=== PATIENT | male | born 1945 | race Caucasian/White ===

== ENCOUNTER 2023-10-29 19:02 | Inpatient (IN) | payer MEDICARE, SELFPAY ==
[2023-10-29] VITALS (12 sets, daily range): BP systolic 135–160; BP diastolic 67–83; BMI 21.6
--- NOTE | 2023-10-29 19:05 | PTCARENOTE ---
Pt arrived via EMS from other hospital facility. Pt is scheduled to go to cath lab tech for pseudoaneurysm procedure ethel.
--- NOTE | 2023-10-29 19:16 | W.SUR.PREOP ---
Pre-Operative Surgical Note
-
I have examined this patient prior to the performance of the scheduled procedure.
The patient's condition is unchanged from the time of the current History and
Physical and the patient is able to undergo the scheduled procedure.
--- NOTE | 2023-10-29 19:16 | W.PN.VS ---
Today's Communication / Plan
-
OR
Assessment/Plan
-
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
plan for endo possible open repair
discussed with patient and family
emergent to OR
Subjective Data
-
Date of Service: October 29, 2023
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
history of lymph node dissection and radiation
reports to be otherwise healthy
Physical Exam
-
pulsatile mass left neck
no erythema
slight tenderness
2+ femoral pulses
--- NOTE | 2023-10-29 19:37 | PTCARENOTE ---
Report given to vascular laborer [employer] prior to pt's arrival to hospital. Rec'd pt at approx 1900 from ambulance crew. Pt ambulated to restroom to void, settled in bed, handoff with receiving nightshift RN in room. Pt placed on monitor and transported down
to vascular lab.
--- NOTE | 2023-10-29 19:56 | W.IMMPOSTOP ---
Surgical Immed Post Op Note
-
Primary Surgeon: teodora
Assisting Surgeon: none
Pre-op Diagnosis: Left Carotid pseudo aneurysm
Post-op Diagnosis: same
Procedure Performed: L CCA and ICA stent graft
Anesthesia Type: Sedation
Specimen / Cultures: none
Estimated Blood Loss: 10
Complications: none
Operative Findings: no flow in pseudo
[2023-10-29] MEDS: NSS 1000 IV (20:15)
--- NOTE | 2023-10-29 20:30 | PTCARENOTE ---
Received pt post operatively from wheelabrator operator. Pt appears drowsy but arousable to verbal and tactile stimuli. Pt is A&Ox2, confused to time. Pt is also forgetful at times. Pt is able to move all 4 extremities and can make needs known. Pt is NSR w/ BBB
and occ. PVCs on tele monitor. Neurovascular checks performed per order. Pedal pulses present via doppler bilaterally and radial pulses palpated bilaterally. Pt on 2L of O2 satting at 97% pulse ox. On auscultation pt lungs sound diminished at the
bases bilaterally otherwise clear. Pts abdomen is round w/ active bowel sounds. Pt has frequency w/ urination, condom cath applied due to bedrest and rt leg mobility restriction. Pt's right groin cath puncture site dressing C/D/I. Pt has a scab on
right knee and bandage on rt londono related to a fall at home. Pt also has adhesive surgical tape strips on rt chest related to an outpatient dermatology procedure. VSS.
[2023-10-30] VITALS (20 sets, daily range): BP systolic 99–161; BP diastolic 61–80; PULSE 94; BMI 21.4
--- NOTE | 2023-10-30 00:30 | PTCARENOTE ---
Neurovascular checks remain unchanged. Cath site dressing C/D/I. Pt resting comfortably at this time. VSS.
[2023-10-30] MEDS: ROXICODONE 5 MG PO (04:04)
[2023-10-30 04:26] LABS: Hematocrit 43.2 % (39.0-52.0); Hemoglobin 14.6 g/dL (13.0-18.0); Mean Corp Hgb Conc. 33.8 g/dL (33.0-37.0); Mean Corpuscular Hgb 32.2 pg (27.0-31.0); Mean Corpuscular Volume 95.2 fL (80.0-94.0); Mean Platelet Volume 10.3 fL (7.4-10.4); Platelet Count 184 10^3/uL (130-400); Red Blood Cell Count 4.54 10^6/uL (4.70-6.10); Red Cell Dist. Width 14.6 % (11.5-14.5)
[2023-10-30 04:40] LABS: INR 1.09; PT 13.9 Sec (11.4-14.6)
[2023-10-30 04:41] LABS: APTT 31.2 Sec (23.4-35.0)
[2023-10-30 04:47] LABS: Blood Urea Nitrogen 27 mg/dl (9-20); Calcium 9.3 mg/dl (8.4-10.2); Carbon Dioxide 25 mmol/L (22-30); Chloride 107 mmol/L (98-107); Estimated Creatinine Clearance 66 ml/min; Glucose 77 mg/dl (70-99); Magnesium 2.1 mg/dl (1.6-2.3); Phosphorus 3.1 mg/dl (2.5-4.5); Potassium 4.2 mmol/L (3.5-5.1); Sodium 140 mmol/L (135-145); eGFR > 60.00
--- NOTE | 2023-10-30 05:30 | PTCARENOTE ---
Pt c/o pain at surgical/procedural site. Pt states pain is 6 out of 10. PRN valerie administered by this RN.
--- NOTE | 2023-10-30 07:15 | W.PN.ANS.POP ---
Anesthesia Post Operative
- Anesthesia Post Op Note
Vital Signs Stable-See Nursing Note: Yes
Airway Patent: Yes
Adequate Pain Control: Yes
Change in Mental Status: No
Current Postoperative Nausea & Vomiting: No
Anesthesia Complications: No
General Anesthetic Recall: No
Unplanned Admission: No
Post Op Hydration Adequate: Yes
--- NOTE | 2023-10-30 07:33 | CON.INTV ---
Consultation
Consultation Request
Date/Time Consultation Requested: 10-30-23
Date/Time Consultation Performed: 10-30-23
Requesting Provider: Dr Romero
Performing Provider: Dr Pena
Reason for Consultation: s/p L CCA and ICA stent graft
Medical History
-
Chief Complaint: L neck pain
Past Medical History
Past Medical History: Other (see A&P for PMH/PSH)
Social History
Tobacco: Non-smoker
Alcohol: Occasional
Drug: None
Personal:
Living: With Family
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
Family History
Family History: Reviewed & Not Pertinent
Allergies / Home Medications
Allergies
Allergy/AdvReac Type Severity Reaction Status Date / Time
hayfever Allergy Itching Uncoded 10/29/23 19:18
Review of Systems
-
History Source: Patient
All other systems: Negative unless noted
Musculoskeletal: Other (L neck incisional pain)
Vitals / Labs / Diagnostic Testing
Vital Signs
Temp Pulse Resp BP Pulse Ox
98.1 F 84 26 135/67 99
10/30/23 07:28 10/30/23 06:30 10/30/23 06:30 10/30/23 06:00 10/30/23 06:30
Lab Data
10/30/23 04:16
10/30/23 04:16
Laboratory Results
10/30/23
04:16
PT 13.9
INR 1.09
APTT 31.2
Diagnostic Testing:
Physical Exam
-
HEENT: Normocephalic, Moist Mucous Membranes and Thrush (n)
Cardiovascular: Regular Rhythm, Murmur (n), Peripheral Edema (n) and Calf Tenderness (n)
Respiratory: Clear and Non-Labored Respirations
GI: Soft, Non Distended and Non Tender
Neurology: Awake, AO x 3 and No Motor Deficits
Skin: Warm
General: Respiratory Distress (n)
Assessment
-
Assessment:
Mr Bob Aguilar is a delightful 78/M transferred for L CCA and ICA stent graft in setting of L carotid bifurcation pseudoaneurysm. Recently received multiple skin biopsies including L neck area as outpatient 1.5 wks ago, seen back at Derm office
this week where new L neck lump was observed, prompting further evaluation which disclosed L carotid bifurcation pseudoaneurysm. Seen at outside ER, transferred to for
Impression:
S/p L CCA and ICA stent graft in setting of L carotid bifurcation pseudoaneurysm
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
Bladder cancer s/p surgery adn BCG, on follow up
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
L carotid pseudoaneurysm
HLD
Hypothyroidism
LLNS
Hearing loss on hearing aids
Plan:
O2 protocol
POx on 2L: 98%
Not on home O2 or BDs
LLNS
Keep asp precs
CXR early -: portable, no infiltrates
IS
Stable postop L CCA and ICA stent graft in setting of L carotid bifurcation pseudoaneurysm
Continue ASA, now dose at 81 mg qd
Started clopidogrel
Resume L-thyroxine, atorvastatin, amlodipine
Regular diet
Pain mgmt, prn morphine IV
PT/OT
OOB as tolerated
DVT proph: sc hep
Stable for transfer to telemetry once OK with Neuro
No critical care time charged today
D/w Mr Aguilar and SPINNER IRONJI Whitt
TT to Dr Gerardo Aguilar (patient's son)
[2023-10-30] MEDS: PLAVIX 75 MG PO (07:39)
[2023-10-30] MEDS: LOW STRENGTH ASPIRIN 81 MG PO (07:39)
[2023-10-30] MEDS: NSS 1000 IV ×2 (08:04→23:00)
--- NOTE | 2023-10-30 08:38 | PTCARENOTE ---
Rec'd pt at 0700. Pt AAOx2-3, forgetful to present time events with repetitive questions. CHEESH-NA, hearing aids inserted. Monitor SR with occas PAC/PVC. Lungs dim/CTA, pox 97% RA. +BS, abd soft/nt. Breakfast ordered. Condom cath in place draining yellow
urine. Right groin site C/D/I. +DP/PT pulses. TURK with equal strength.
--- NOTE | 2023-10-30 09:59 | W.PN.VS ---
Today's Communication / Plan
-
transfer to tele
Assessment/Plan
-
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
doing well post op
ok to downgrade
likely home trudi
plavix
Subjective Data
-
Date of Service: October 30, 2023
looks good this am
no complaints
Objective Data
-
Vital Signs
Temp Pulse Resp BP Pulse Ox
98.1 F 100 18 140/73 96
10/30/23 07:28 10/30/23 09:45 10/30/23 09:45 10/30/23 07:00 10/30/23 09:30
Intake and Output
10/29/23 10/30/23 10/31/23
06:59 06:59 06:59
Intake Total 800 / 880 160 / 160
Output Total 1375 / 1375
Balance -575 / -495 160 / 160
Intake:
IV fluids (Total) 800 / 880 160 / 160
Nss 1,000 ml @ 80 mls/hr IV . 800 / 880 160 / 160
[id number] JULISSA Rx#:[id number]
Output:
Urine, Voided 1375 / 1375
Other:
Number of approximated MODERATE 1
amounts of urine
Lab Results
10/30/23 04:16
10/30/23 04:16
Calcium 9.3 mg/dl (8.4-10.2) 10/30/23 04:16
Phosphorus 3.1 mg/dl (2.5-4.5) 10/30/23 04:16
Magnesium 2.1 mg/dl (1.6-2.3) 10/30/23 04:16
Physical Exam
-
rrr
ctab
groin intact
+ pulse in right foot
neck now non pulsatile
[2023-10-30] MEDS: NORVASC PO (11:00)
--- NOTE | 2023-10-30 11:30 | PTCARENOTE ---
~1015, pt in bathroom, stated he felt nauseous. Pt stood and vomited into sink, pt then became dizzy, pale/diaphoretic. RN remained at pt's side and called for additional help. Recliner chair wheeled into bathroom by another staff member and pt
assisted down into chair. BP taken- 99/62. Dr. Romero notified of events, still ok for transfer to tele per MD. Pt's and son in to visit, updated. Pt back to baseline, color improved.
--- NOTE | 2023-10-30 13:08 | PTCARENOTE ---
Pt transferred to 2102 via bed, accompanying pt.
--- NOTE | 2023-10-30 13:39 | PTCARENOTE ---
pt received to room 2103 from ICU at 1315. pt arrived via bed, present. pt oriented to room, bed controls and plan of care with verbalized understanding. assessment as documented. telemetry placed and reading SR in 80's. pt denies
c/o-tolerating issac nash and crackers, denies nausea. bed alarm in place due to forgetfulness. will observe.
[2023-10-30] MEDS: HEPARIN 5000 UNITS SC ×2 (17:24→23:05)
[2023-10-30] MEDS: LIPITOR 80 MG PO (17:25)
[2023-10-31 02:56] VITALS: BP 116/79
[2023-10-31] MEDS: SYNTHROID 50 MCG PO (05:47)
[2023-10-31 07:27] VITALS: BP 146/85
[2023-10-31] MEDS: NORVASC 2.5 MG PO (08:24)
[2023-10-31] MEDS: LOW STRENGTH ASPIRIN 81 MG PO (08:24)
[2023-10-31] MEDS: PLAVIX 75 MG PO (08:24)
[2023-10-31] MEDS: HEPARIN 5000 UNITS SC (08:25)
--- NOTE | 2023-10-31 08:39 | W.PN.VS ---
Addendum entered and electronically signed by Jordan Mckee III, MD 10/31/23 14:35:
This patient was seen and examined with Zuleyka Hanson PA-C. I agree with the history and physical exam as well as the assessment and plan. I have the following additions:
Comfortable this morning
No complaints
Sitting upright in chair
Neck is soft
Right groin access site soft with no hematoma
Grossly nonfocal neuroexam
is at bedside
Would like to obtain carotid duplex prior to discharge to confirm thrombosis of pseudoaneurysm. No filling was identified on completion images yesterday.
Continue antiplatelet therapy
Will follow-up after imaging complete
Signed:
Jordan Mckee III, MD
[facility]
[phone] (cubs)
Original Note:
Today's Communication / Plan
-
- Carotid duplex to eval post carotid stent
- Continue neuro checks
- Continue ASA/plavix/statin
- PT/OT, OOB/ambulate
- Plan for discharge later today pending carotid duplex
Assessment/Plan
-
78 year old male with left carotid pseudoaneurysm s/p L ICA/CCA angioplasty/stent POD2
- Carotid duplex to eval post carotid stent
- Continue neuro checks
- Continue ASA/plavix/statin
- PT/OT, OOB/ambulate
- Plan for discharge later today pending carotid duplex
Subjective Data
-
Date of Service: October 31, 2023
No acute events overnight. No headaches, vision changes, speech changes, unilateral weakness/numbness.
Objective Data
-
Vital Signs
Temp Pulse Resp BP Pulse Ox
98.7 F 86 20 146/85 100
10/31/23 07:27 10/31/23 08:24 10/31/23 07:27 10/31/23 08:24 10/31/23 08:00
Intake and Output
10/30/23 10/31/23 11/01/23
06:59 06:59 06:59
Intake Total 800 / 880 1271 / 1271
Output Total 1375 / 1375 470 / 470
Balance -575 / -495 801 / 801
Intake:
Oral fluids 600 / 600
IV fluids (Total) 800 / 880 671 / 671
Nss 1,000 ml @ 80 mls/hr IV . 800 / 880 240 / 240
[id number] JULISSA Rx#:[id number]
Output:
Urine, Voided 1375 / 1375 470 / 470
Other:
Number of approximated MODERATE 1
amounts of urine
How many times incontinent 1
SATURATED amount urine
Lab Results
10/30/23 04:16
10/30/23 04:16
Calcium 9.3 mg/dl (8.4-10.2) 10/30/23 04:16
Phosphorus 3.1 mg/dl (2.5-4.5) 10/30/23 04:16
Magnesium 2.1 mg/dl (1.6-2.3) 10/30/23 04:16
Physical Exam
-
Awake, alert, NAD
Regular rate and rhythm
Nonlabored respirations
Left neck with mild edema, no tenderness or pulsatility.
No focal deficits. Strength equal in bilateral upper and lower extremities. Smile symmetrical, tongue midline.
R groin access site c/d/i. R groin without bleeding or hematoma
+R DP pulse
[2023-10-31 10:51] VITALS: BP 155/89; PULSE 92
[2023-10-31 11:22] VITALS: BP 128/90
--- NOTE | 2023-10-31 12:49 | PN.CDI ---
Addendum entered and electronically signed by Zuleyka Hanson PA-C 10/31/23 14:04:
pseudoaneurysm is suspected to be complication of procedure
Original Note:
CDI
- -
CDI:
Physician Documentation Request
Admit Date: 10/29/23 19:02
Dear Zuleyka Hanson,
Patient was transferred for L CCA and ICD for L carotid bifurcation pseudoaneurysm. It is noted that patient has received multiple skin biopsies including left neck area as outpatient 1.5 weeks ago, seen back at crm technical lead office this week with
new left neck lump, prompting further evaluation with disclosed the pseudoaneurysm.
Please clarify the following:
pseudoaneurysm is a complication of the procedure
pseudoaneurysm is unexpected but is NOT a complication of the procedure
pseudoaneurysm is an expected occurrence and is not a complication of procedure
pseudoaneurysm is inherent to/unavoidable during the surgery and is not a procedure
Other
Use of terms such as suspected, likely, concern for, or probable (associated with a specific diagnosis that is being evaluated, monitored, or treated as if it exists) are acceptable and can be coded in the inpatient setting, when documented at the
time of discharge.
Thank you,
Yaz Pickett RN, BSN
CDI Specialist
tiger text
Please use your independent medical judgment in providing your response.
--- NOTE | 2023-10-31 14:35 | W.PN.UPDATE ---
Update Note
Progress Note Update
Carotid duplex images reviewed. There is color flow in a complex collection surrounding the left common carotid artery. Source of color flow cannot be determined on duplex. Unclear based on these results if the pseudoaneurysm is completely
excluded. Will proceed with CT angiogram of the head and neck now. Patient is clinically very stable.
[2023-10-31 15:27] VITALS: BP 140/86
--- NOTE | 2023-10-31 15:48 | CM ---
Addendum [facility] 10/31/23 16:19:
[facility]- out of service area
Referral sent to [facility]
VN order on chart
Discharge Disposition- home with Irma and new WW
fax- [phone]
Addendum entered by [facility] 10/31/23 15:51:
Requesting VN call [phone] to schedule service
Original Note:
CM met with pt and spouse bedside
They resides in a 2S with 2 ANA- 1st floor setup
Pt is independent with his ADLs- no DMEs very active
Food secure
PCP- Leonard Reilly
Rx- [facility]
PT/OT recommended VN
[facility] request
If [facility] does not servcie area, referral to be made to [facility]
Therapy has issued a WW which is bedside
Pt now inpatient status- IMM verbally reviewed
Copy provided
Discharge Disposition- home with [facility] and new WW
--- NOTE | 2023-10-31 17:09 | W.DS.TRANS ---
DC Summary - Receipt And Report Clerk
-
Discharge Instructions:
Discharge Diagnosis/Procedures Left carotid pseudoaneurysm, Left carotid
angioplasty and stent
Diet As tolerated
Activity No strenuous activity
Driving Restrictions No driving for 24 hours
Bathing Restrictions OK to Shower
Other Services PT,VN
Instructions: Carotid Artery Stenting (DC)
Carotid Artery Stenting
Stand-Alone Forms: DC Instr - Vascular OR
Changes to Home Medications: Yes
Discharge Medications:
DC Medications w/original date entered in [employer]
amlodipine 2.5 mg tablet (Norvasc) 2.5 mg PO DAILY Blood Pressure 10/30/23
atorvastatin 80 mg tablet (Lipitor) 80 mg PO HS High Cholesterol 10/30/23
levothyroxine 50 mcg tablet (Synthroid) 50 mcg PO DAILY Thyroid 10/30/23
aspirin 81 mg chewable tablet (Children's Aspirin) 81 mg PO DAILY #30 tabs 10/31/23
clopidogrel 75 mg tablet 75 mg PO DAILY #30 tabs 10/31/23
Home Medication Changes
plavix 75mg added, asa changed from 325mg to 81mg
Pending Results: No
--- NOTE | 2023-10-31 17:11 | W.DCSUMMARY ---
Discharge Summary
Discharge Data
Date of Admission: 10/29/23
Date of Discharge: 10/31/23
-
Pending Results: No
Hospital Course
10/29/23: Presented with left neck pulsatile mass, found to have left carotid pseudoaneurysm following outpatient biopsy of neck mass. Underwent left carotid angiogram with left ICA/CCA angioplasty and stent via right femoral access. Tolerated
procedure well. Started on plavix, continued ASA.
10/30/23: Doing well postoperatively, remains neurologically intact. Neck without pulsatile mass. Transferred to telemetry.
10/31/23: Repeat carotid duplex and CTA performed showing thrombosis of pseudoaneurysm, no active bleeding. Discharged to home with VN and home PT. Plan to follow up in vascular surgery clinic with Dr. Mckee on 11/24/23 at 9:45am.
Discharge Plan
-
Patient Disposition: Home (Routine Discharge)
Discharge Diagnosis/Procedures: Left carotid pseudoaneurysm, Left carotid angioplasty and stent
Condition: Good
Diet: As tolerated
Activity: No strenuous activity
Driving Restrictions: No driving for 24 hours
Bathing Restrictions: OK to Shower
Other Services: VN and PT
Instructions: Carotid Artery Stenting (DC), Carotid Artery Stenting
Stand Alone Forms: DC Instr - Vascular OR
Referrals:
Jordan Mckee III, MD [Active] - in two to four weeks (Appt scheduled for 11/24/23 at 9:45am)
Leonard Reilly MD [Family Provider] -
Prescriptions:
New
clopidogrel 75 mg Tablet
75 mg PO DAILY Qty: 30 0RF
aspirin [Children's Aspirin] 81 mg Tablet,Chewable
81 mg PO DAILY Qty: 30 0RF
Continued
levothyroxine [Synthroid] 50 mcg Tablet
50 mcg PO DAILY
atorvastatin [Lipitor] 80 mg Tablet
80 mg PO HS
amlodipine [Norvasc] 2.5 mg Tablet
2.5 mg PO DAILY
Discontinued
aspirin 325 mg Tablet
325 mg PO DAILY
Discharge Orders:
Discharge Patient (As Directed); Ordered 10/31/23
Ordered By: Zuleyka Hanson
Discharge Date and Time
Print Language: ROMANIAN
[2023-10-31] MEDS: HEPARIN SC (17:37)
[2023-10-31] MEDS: LIPITOR 80 MG PO (17:38)
== END 2023-10-31 19:14 | disposition home health service (06) | DRG 271 ==
LOC: 2 SOUTH 19:02
PROVIDERS: ADMITTING PHYSICIAN Surgery; FAMILY PHYSICIAN Internal Medicine; OTHER PHYSICIAN Internal Medicine Pulmonary Disease
PROC: B3171ZZ Fluoroscopy of Left Internal Carotid Artery using Low Osmolar Contrast (ICD-10-PCS; 2023-10-30)
PROC: 03V Upper Arteries, Restriction (ICD-10-PCS; 2023-10-30)
PROC: B31B1ZZ Fluoroscopy of Left External Carotid Artery using Low Osmolar Contrast (ICD-10-PCS; 2023-10-30)
PROC: B3141ZZ Fluoroscopy of Left Common Carotid Artery using Low Osmolar Contrast (ICD-10-PCS; 2023-10-30)
DX: T81.718A Complication of other artery following a procedure, not elsewhere classified, initial encounter (principal); I74.8 Embolism and thrombosis of other arteries; T82.868A Thrombosis due to vascular prosthetic devices, implants and grafts, initial encounter; I72.0 Aneurysm of carotid artery; M54.2 Cervicalgia; J30.1 Allergic rhinitis due to pollen; E78.5 Hyperlipidemia, unspecified; E03.9 Hypothyroidism, unspecified; H91.90 Unspecified hearing loss, unspecified ear; Y84.8 Other medical procedures as the cause of abnormal reaction of the patient, or of later complication, without mention of misadventure at the time of the procedure; Y92.9 Unspecified place or not applicable; Z92.3 Personal history of irradiation; Z90.81 Acquired absence of spleen; Z85.51 Personal history of malignant neoplasm of bladder; Z86.73 Personal history of transient ischemic attack (TIA), and cerebral infarction without residual deficits
CPT/HCPCS: 37215; 70496; 70498; 71045; 76937; 80048; 83735; 84100; 85027; 85610; 85730; 93005; 93880; 97116; 97163; 97166; 97530; 97535; C1760; C1769; C1874; C1894; Q9967

== ENCOUNTER → 2024-02-15 13:54 | Outpatient (REF) | payer MEDICARE, SELFPAY | LOC: RAD 13:54 | PROVIDERS: ATTENDING PHYSICIAN Surgery Vascular Surgery; FAMILY PHYSICIAN Internal Medicine | DX: I72.0 Aneurysm of carotid artery (principal) | CPT/HCPCS: 93880 ==

== ENCOUNTER 2024-08-16 23:55 | Inpatient (IN) | payer MEDICARE, SELFPAY ==
[2024-08-16 16:53] VITALS: BP 143/79
[2024-08-16 17:21] LABS: % Basophils 0.4 % (0-2); % Eosinophils 0.9 % (0-6); % Immature Granulocytes 0.2 % (0-0.5); % Lymphocytes 32.8 % (20.5-51.1); % Monocytes 12.7 % (1.7-9.3); Absolute Eosinophils 0.1 10^3/uL (0-0.7); Absolute Lymphocytes 3.1 10^3/uL (1.2-3.4); Absolute Monocytes 1.2 10^3/uL (0.1-0.6); Hematocrit 43.5 % (39.0-52.0); Hemoglobin 14.5 g/dL (13.0-18.0); Mean Corp Hgb Conc. 33.3 g/dL (33.0-37.0); Mean Corpuscular Hgb 32.5 pg (27.0-31.0); Mean Corpuscular Volume 97.5 fL (80.0-94.0); Mean Platelet Volume 10.6 fL (7.4-10.4); Nucleated Red Blood Cells % 0 % (-); Platelet Count 213 10^3/uL (130-400); Red Blood Cell Count 4.46 10^6/uL (4.70-6.10); White Blood Cell Count 9.3 10^3/uL (4.8-10.8)
[2024-08-16 19:20] VITALS: BMI 23.4
[2024-08-16 19:24] VITALS: BP 141/65
--- NOTE | 2024-08-16 19:40 | ED.GENMED ---
History of Present Illness
<Kiana Don PA-C - Last Filed: 08/17/24 03:55>
General
Chief Complaint: Abnormal Lab Value
Source: patient
Exam Limitations: none
Time Seen by Provider: 08/16/24 19:04
Nursing documentation reviewed up to this point in time: agreed with
History of Present Illness
History of Present Illness:
Patient is a 79-year-old male with history hypertension, hyperlipidemia, past history of bladder CA, Hodgkin's lymphoma presenting to the emergency department for evaluation of lump on left side and neck. Patient states he had a stent placed in his
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 There was a postoperative hematoma that has been present since surgery although has not been decreasing in size. This has been followed closely with vascular surgeon, Dr. Mckee. Patient
states that overnight hematoma became red and firm with possible mild increase in size. Patient states that it is not very painful. He denies any fever, chills, difficulty breathing, difficulty swallowing, weakness.
After discussion with vascular surgeon�he was sent for CT scan and then sent to the emergency department from radiology department given concern of possible infected hematoma.
Review of Systems
<Kiana Don PA-C - Last Filed: 08/17/24 03:55>
Review of Systems
Allergies reviewed?: Yes
All Other Systems: ROS reviewed and negative except as documented in HPI and ROS
Phy Exam
<Kiana Don PA-C - Last Filed: 08/17/24 03:55>
Physical Exam
Physical Exam:
Vitals: Hypertensive, otherwise vital signs stable. Afebrile
General: Patient is well appearing, no acute distress. Nontoxic-appearing
Skin: Warm and dry, no rashes or lesions
Head: Normocephalic, atraumatic
Eyes: Sclera nonicteric. EOMs intact. No nystagmus.
Throat: Uvula midline. Protecting airway. No stridor
Neck: Approximately 3cm x 3cm firm erythematous nodule on left lateral neck with minimal tenderness to palpation.. No overlying warmth. Trachea midline. Normal range of motion in neck. Palpable carotid pulse bilaterally
Cardiac: Regular rate and rhythm, no murmurs.
Pulm: Normal respiratory effort, no wheezes, rales, rhonchi heard on exam.
Abdomen: No abdominal tenderness.
Extremities: No evidence of cyanosis or edema. Palpable radial pulses bilaterally
Neuro: AAOx3. CN II-XII intact. No focal neurologic deficits.
Psychiatric: Normal affect.
Course
<Kiana Don PA-C - Last Filed: 08/17/24 03:55>
Orders/Labs/Results
Orders:
Orders
08/16/24 17:13
Complete Blood Count/With Diff Urgent
08/16/24 19:45
Electrocardiogram (*1) Urgent
Reason for Study: PreOp
EKG- Treatment ONCE
08/16/24 20:18
Basic Metabolic Panel Urgent
Lactic Acid Q4H
Comment: CANCEL 2nd LACTIC ACID IF 1st LACTIC ACID IS LESS THAN 2
PTT Urgent
Prothrombin Time Urgent
Blood Culture Q30M
XIOMARA Source: Blood/Venous
Specimen Description:
Blood Culture Q30M
XIOMARA Source: Blood/Venous
Specimen Description:
08/16/24 21:42
Vancomycin [Vancocin] 2,000 mg 0.9% Sodium Chloride 500 ml [Nss] 500 ml IV NOW
08/16/24 22:44
Admit/Transfer Patient As Directed
Co-Sign Provider:
Level of Care: Inpatient admission
Assign to:: Medical/Surgical
Physician / Group: [facility]
Diagnosis: Hematoma +/- Infection
Reason for Hospitalization: Hematoma +/- Infection
Expected length of stay greater than two midnights?: Yes
ELOS- Estimated Length of Stay in days: 3
I certify the patient meets the requirements for IP care: Yes
PRN Pain Medication Management As Directed
May give lesser potent ordered pain med per pt: Yes
preference::
Protocol:: Medication orders for pain may be administered in a
manner that supports deferring to patient preference
when the pt is:
- Requesting an ordered lesser potent pain medication.
Least to most potent pain medications are defined
as: acetaminophen < NSAID < tramadol < opioids
(morphine, oxycodone, hydromorphone).
- Requesting a lesser dose of the same medication IF
ORDERED.
- Requesting a less intrusive route of administration
if both routes are prescribed by the provider (PO <
IV).
08/16/24 22:45
Code Status As Directed
Resuscitation Status: Full Code
08/17/24 01:45
0.9% Sodium Chloride 1000 ml [Nss] 1,000 ml IV 80 mls/hr
Acetaminophen [Tylenol] 650 mg PO Q4HPRN PRN
HYDROmorphone [Dilaudid] 0.5 mg IV Q4HPRN PRN
08/17/24 01:45
Vascular Surgery Consult Routine
Consulting Provider: Martine Amaya
Was physician already notified: Yes
Reason for consult: Hematoma +/- Infection
WOUND/OSTOMY CONSULT Routine
Reason for Consult: R elbow wound
Activity As Directed
Activity Level: Ambulate
With Assistance
Bladder Scan As Directed
Follow Bladder Retention/Intermittent Cath Algorithm?: Yes
PRN if no void in __ hours: 6
Frequency: Per Retention Algorithm
If Bladder Scan Result >: 400
then:: Straight cath
I/O [Intake/ Output] As Directed
Frequency: Per unit guidelines
Pneumatic Compression Sleeves As Directed
Type: Knee high
Straight Cath As Directed
Frequency: Per Retention Algorithm
Additional Instructions: straight cath as needed per acute urinary retention algorithm for 24 hrs
Additional Instructions: for bladder scan greater than 400 mL
Vital Signs As Directed
Frequency: Per unit guidelines
Weight As Directed
Frequency: Daily
Oxygen Therapy [O2 Therapy] [RESP] Routine
Titrate/Wean O2 to maintain O2 sat greater than (%): 94
DX Deep Vein Thrombosis Video Routine
08/17/24 02:00
Ampicillin/Sulbactam 3 G [Unasyn] 3 gm 0.9% Sodium Chloride 100 ml [Nss] 100 ml IV Q6H
08/17/24 Breakfast
NPO
Allow oral meds: Yes
Allow clear liquids: Sips of Clears
NPO for procedure after (time): midnight
Regular
Basic Metabolic Panel IN AM
Complete Blood Count/No Diff IN AM
08/17/24 08:00
Amlodipine [Norvasc] 5 mg PO DAILY
Aspirin Chewable [Low Strength Aspirin] 81 mg PO DAILY
08/17/24 22:00
Atorvastatin [Lipitor] 80 mg PO HS
Levothyroxine [Synthroid] 50 mcg PO HS
Abnormal Lab Results
08/16/24 08/16/24
17:13 20:18
RBC 4.46 L 10^6/uL
(4.70-6.10)
MCV 97.5 H fL
(80.0-94.0)
MCH 32.5 H pg
(27.0-31.0)
RDW 16.0 H %
(11.5-14.5)
MPV 10.6 H fL
(7.4-10.4)
Absolute Monos (auto) 1.2 H 10^3/uL
(0.1-0.6)
Monocytes % 12.7 H %
(1.7-9.3)
BUN 27 H mg/dl
(9-20)
Glucose 191 H mg/dl
(70-99)
08/16/24 17:13
08/16/24 20:18
Vital Signs
Initial and Last Documented VS:
Initial Vital Signs
Temp Pulse Resp BP Pulse Ox
97.4 F 75 20 143/79 96
08/16/24 16:53 08/16/24 16:53 08/16/24 16:53 08/16/24 16:53 08/16/24 16:53
Last Documented Vital Signs
Temp Pulse Resp BP Pulse Ox
97.7 F 84 20 141/83 96
08/17/24 01:52 08/17/24 01:52 08/17/24 01:52 08/17/24 01:52 08/17/24 01:52
<Kartik Ding, DO - Last Filed: 08/16/24 22:29>
Orders/Labs/Results
Orders:
Orders
08/16/24 17:13
Complete Blood Count/With Diff Urgent
08/16/24 19:45
Electrocardiogram (*1) Urgent
Reason for Study: PreOp
EKG- Treatment ONCE
08/16/24 20:18
Basic Metabolic Panel Urgent
Lactic Acid Q4H
Comment: CANCEL 2nd LACTIC ACID IF 1st LACTIC ACID IS LESS THAN 2
PTT Urgent
Prothrombin Time Urgent
Blood Culture Q30M
XIOMARA Source: Blood/Venous
Specimen Description:
Blood Culture Q30M
XIOMARA Source: Blood/Venous
Specimen Description:
08/16/24 21:42
Vancomycin [Vancocin] 2,000 mg 0.9% Sodium Chloride 500 ml [Nss] 500 ml IV NOW
08/16/24 22:44
Admit/Transfer Patient As Directed
Co-Sign Provider:
Level of Care: Inpatient admission
Assign to:: Medical/Surgical
Physician / Group: [facility]
Diagnosis: Hematoma +/- Infection
Reason for Hospitalization: Hematoma +/- Infection
Expected length of stay greater than two midnights?: Yes
ELOS- Estimated Length of Stay in days: 3
I certify the patient meets the requirements for IP care: Yes
PRN Pain Medication Management As Directed
May give lesser potent ordered pain med per pt: Yes
preference::
Protocol:: Medication orders for pain may be administered in a
manner that supports deferring to patient preference
when the pt is:
- Requesting an ordered lesser potent pain medication.
Least to most potent pain medications are defined
as: acetaminophen < NSAID < tramadol < opioids
(morphine, oxycodone, hydromorphone).
- Requesting a lesser dose of the same medication IF
ORDERED.
- Requesting a less intrusive route of administration
if both routes are prescribed by the provider (PO <
IV).
08/16/24 22:45
Code Status As Directed
Resuscitation Status: Full Code
08/17/24 01:45
0.9% Sodium Chloride 1000 ml [Nss] 1,000 ml IV 80 mls/hr
Acetaminophen [Tylenol] 650 mg PO Q4HPRN PRN
HYDROmorphone [Dilaudid] 0.5 mg IV Q4HPRN PRN
08/17/24 01:45
Vascular Surgery Consult Routine
Consulting Provider: Martine Amaya
Was physician already notified: Yes
Reason for consult: Hematoma +/- Infection
WOUND/OSTOMY CONSULT Routine
Reason for Consult: R elbow wound
Activity As Directed
Activity Level: Ambulate
With Assistance
Bladder Scan As Directed
Follow Bladder Retention/Intermittent Cath Algorithm?: Yes
PRN if no void in __ hours: 6
Frequency: Per Retention Algorithm
If Bladder Scan Result >: 400
then:: Straight cath
I/O [Intake/ Output] As Directed
Frequency: Per unit guidelines
Pneumatic Compression Sleeves As Directed
Type: Knee high
Straight Cath As Directed
Frequency: Per Retention Algorithm
Additional Instructions: straight cath as needed per acute urinary retention algorithm for 24 hrs
Additional Instructions: for bladder scan greater than 400 mL
Vital Signs As Directed
Frequency: Per unit guidelines
Weight As Directed
Frequency: Daily
Oxygen Therapy [O2 Therapy] [RESP] Routine
Titrate/Wean O2 to maintain O2 sat greater than (%): 94
DX Deep Vein Thrombosis Video Routine
08/17/24 02:00
Ampicillin/Sulbactam 3 G [Unasyn] 3 gm 0.9% Sodium Chloride 100 ml [Nss] 100 ml IV Q6H
08/17/24 Breakfast
NPO
Allow oral meds: Yes
Allow clear liquids: Sips of Clears
NPO for procedure after (time): midnight
Regular
Basic Metabolic Panel IN AM
Complete Blood Count/No Diff IN AM
08/17/24 08:00
Amlodipine [Norvasc] 5 mg PO DAILY
Aspirin Chewable [Low Strength Aspirin] 81 mg PO DAILY
08/17/24 22:00
Atorvastatin [Lipitor] 80 mg PO HS
Levothyroxine [Synthroid] 50 mcg PO HS
Abnormal Lab Results
08/16/24 08/16/24
17:13 20:18
RBC 4.46 L 10^6/uL
(4.70-6.10)
MCV 97.5 H fL
(80.0-94.0)
MCH 32.5 H pg
(27.0-31.0)
RDW 16.0 H %
(11.5-14.5)
MPV 10.6 H fL
(7.4-10.4)
Absolute Monos (auto) 1.2 H 10^3/uL
(0.1-0.6)
Monocytes % 12.7 H %
(1.7-9.3)
BUN 27 H mg/dl
(9-20)
Glucose 191 H mg/dl
(70-99)
08/16/24 17:13
08/16/24 20:18
Vital Signs
Initial and Last Documented VS:
Initial Vital Signs
Temp Pulse Resp BP Pulse Ox
97.4 F 75 20 143/79 96
08/16/24 16:53 08/16/24 16:53 08/16/24 16:53 08/16/24 16:53 08/16/24 16:53
Last Documented Vital Signs
Temp Pulse Resp BP Pulse Ox
97.7 F 84 20 141/83 96
08/17/24 01:52 08/17/24 01:52 08/17/24 01:52 08/17/24 01:52 08/17/24 01:52
<Kiana Don PA-C - Last Filed: 08/17/24 03:55>
MDM/Problems Addressed
Differential Diagnosis Includes:
Not limited to: Hematoma, infected hematoma, abscess, postoperative complication, etc.
MDM/Problems Addressed:
79-year-old male with known postsurgical hematoma of left neck presenting with acute changes including erythema/increased swelling. Presents from radiology after CTA head/neck ordered by vascular surgery [facility] shows hematoma w/ concern of possible
infectious component. Patient has stable vital signs. He is afebrile. On exam�patient is well-appearing. There is an approximately 3 cm x 3 cm erythematous and firm nodule on left anterior neck. No overlying warmth or red streaking. Patient is
protecting his airway. He has clear speech and no stridor. Basic labs, coags, lactic, and blood cultures obtained in the ED. Hemoglobin stable. Chemistry without acute abnormalities. Attending physician did discuss case with vascular surgery
attending. Given change in appearance including significant erythema plan to admit patient to hospitalist for IV antibiotics with concern for infected hematoma. Possible drainage and washout pending vascular surgery consult tomorrow. This plan
was discussed with patient and family who are agreeable. IV vancomycin initiated in ED. Patient accepted to hospital service in stable condition.
Chronic conditions affecting care:
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
Acute Exacerbation and/or Progression of Chronic Illness:
Acutely hypertensive
<Kiana Don PA-C - Last Filed: 08/17/24 03:55>
*Radiology
Radiology exam reviewed: radiology read reviewed (CTA head/neck )
*Pulse Oximetry
Patient hypoxic: no
*EKG
Interpreted by ED Provider?: Yes
EKG Intrepretation Date: 08/16/24
Interpretation: abnormal
Comparison EKG: changes noted
Heart Rate: 83
Rate: normal
Rhythm: sinus and PVC's
Interval: first degree heart block
QRS Pattern: low voltage
Ischemia: non-specific ST changes
*Ultrasound Spec Interpretation
Rate: Ultrasound Spec- N/A
*Critical Care Note
Total Time (30-74mins, 75-104mins- exclusive of procedures): Not Applicable
<ANDERSON Rogers Last Filed: 08/17/24 03:55>
Patient Management
Escalation/DeEscalation of care consider admission/obs:
Admit for IV antibiotics, vascular surgery consult and possible drain/washout in OR
<Kartik Ding DO - Last Filed: 08/16/24 22:29>
Patient Management
Discussion with other providers: Maintenance Specialist (Case discussed with vascular surgery.)
ED Attending Note
<ANDERSON Rogers Last Filed: 08/17/24 03:55>
-
Portions of this chart may have been created with voice recognition software.� Occasional wrong word or��sound alike� substitutions may have occurred due to the inherent limitations of voice recognition software.
<Kartik Ding DO - Last Filed: 08/16/24 22:29>
ED Attending Note
Patient seen and examined by attending physician: Yes
I performed the substantive portion of visit, reviewed & personally made and approve the management plan that is documented in note by myself or HARDY.: Yes
Discharge Plan
Departure
Patient Disposition: Admit
Date of Disposition: 08/16/24
Time of Disposition: 21:40
Presentation/result/management discussed w/ accepting MD/DO: Hospitalist
Discharge Problem:
Hematoma of neck
Interventions
Interventions:
*Risk Screen - Suicide Last Done: 08/16/24 16:53
*General Assessment Last Done: 08/16/24 19:20
*Neglect/Abuse Screening Last Done: 08/16/24 19:20
*ED- Fall Risk Assessment Last Done: 08/16/24 19:20
*ED COVID-19 Vaccine History Last Done: 08/16/24 19:20
*Nursing Disposition Last Done: 08/17/24 01:30
Discharge Date and Time
Discharge Date/Time: 08/17/24 01:30
[2024-08-16 20:00] VITALS: BP 137/75
[2024-08-16 20:44] LABS: INR 0.98; PT 13.5 Sec (11.4-14.6)
[2024-08-16 20:45] LABS: APTT 27.4 Sec (23.4-35.0)
[2024-08-16 20:49] LABS: Lactic Acid 1.2 mmol/L (0.7-2.0)
[2024-08-16 21:00] VITALS: BP 153/75
[2024-08-16 21:09] LABS: Blood Urea Nitrogen 27 mg/dl (9-20); Calcium 9.2 mg/dl (8.4-10.2); Carbon Dioxide 29 mmol/L (22-30); Chloride 104 mmol/L (98-107); Estimated Creatinine Clearance 63 ml/min; Glucose 191 mg/dl (70-99); Sodium 136 mmol/L (135-145); eGFR > 60.00
[2024-08-16] MEDS: VANCOCIN 540 MG IV (22:05)
[2024-08-16 22:08] VITALS: BP 142/89
--- NOTE | 2024-08-16 22:47 | HPS.HSE ---
Family Physician
-
Family Physician: Leonard Reilly
Chief Complaint
-
Left Neck Swelling / Redness
History of Present Illness
Patient is a 79y M with PMH significant for bladder cancer, hypertension and prior L carotid bifurcation pseudoaneurysm who presents to ED complaining of left neck swelling and redness. Patient underwent stenting of the left common and internal
carotid arteries in October 2023. He developed a complex fluid collection at the bifurcation post-op and this collection has persisted since that time. Patient reports no significant change in size of the associated L neck swelling since his initial
procedure. He has been followed by Vascular Surgery as an outpatient with no new issues. He denies any pain or tenderness at the site.
This AM, patient woke and appreciated redness overlying the area of swelling. This was a new finding.
He denies any new pain, fevers / chills, N/V/D or other new complaints.
He denies any new injury / trauma. No new medications.
Medical History
Past Medical History
Past Medical History: Reports Other
Additional Past Medical History:
Hodgkin's Lymphoma s/p XRT and Splenectomy
Bladder Cancer s/p TURBT and BCG
Hypertension
Left Carotid Bifurcation Pseudoaneurysm
TIAs
Hypothyroidism
Skin Cancer
Hearing Loss
Past Surgical History: Reports Other
Additional Past Surgical History:
Splenectomy
TURBT
Mastoid Resection Tympanoplasty
Skin Cancer Excisions
Left Carotid Stenting - CCA and ICA (October 2023)
Social History
Tobacco: Non-smoker
Alcohol: Occasional
Drug: None
Family History
Family History: Not pertinent
Allergies / Home Medications
Allergies reflects when Allergies were last updated in [employer].
Home Medications with original date entered in [employer]
Allergy/Medication List:
Allergies
Allergy/AdvReac Type Severity Reaction Status Date / Time
hayfever Allergy Itching Uncoded 08/16/24 16:53
Home Medications
atorvastatin 80 mg tablet (Lipitor) 80 mg PO HS High Cholesterol 10/30/23
levothyroxine 50 mcg tablet (Synthroid) 50 mcg PO HS Thyroid 10/30/23
aspirin 81 mg chewable tablet (Children's Aspirin) 81 mg PO DAILY #30 tabs 10/31/23
clopidogrel 75 mg tablet 75 mg PO DAILY #30 tabs 10/31/23
amlodipine 5 mg tablet 5 mg PO DAILY 08/16/24
Review of Systems
-
History Source: Patient
A 12 point ROS was completed and negative except as noted: Yes
Constitutional: Denies Fever, Fatigue or Chills
EENT: Reports Other (Chronic L Neck Swelling); Denies Sore Throat or Runny Nose
Respiratory: Denies Cough or Trouble Breathing
Cardiac: Denies Chest Pain or Palpitations
Abdomen/GI: Denies Abdominal Pain, Nausea, Vomiting or Diarrhea
: Denies Dysuria or Frequency
Musculoskeletal: Denies Joint Pain or Edema
Skin: Reports Other (Redness L Neck)
Neurological: Denies Dizzy, Headache, Weakness or Numbness
Psych: Denies Depression or Anxiety
Physical Exam
Vital Signs
Vital Signs
Temp Pulse Resp BP Pulse Ox
97.4 F 85 18 153/75 97
08/16/24 16:53 08/16/24 19:24 08/16/24 19:24 08/16/24 21:00 08/16/24 21:15
Physical Exam
General: Other (79y M in no acute distress)
HEENT: Moist mucous membranes and Other (Swelling over the L neck proximally. Small area of fluctuance with overlying erythema and mild tenderness. )
Respiratory: Clear; No Wheezes, Rales or Rhonchi
Cardiac: S1/S2 and Regular Rhythm
GI: Soft, Non Tender, Non Distended and Normal Bowel Sounds
Musculoskeletal: No Clubbing, No Cyanosis and No Edema
Skin: Other (Wound over the R lateral elbow from recent injury.)
Neuro: AO x 3
Laboratory Results
-
08/16/24 17:13
08/16/24 20:18
Laboratory Results
PT 13.5 Sec (11.4-14.6) 08/16/24 20:18
INR 0.98 08/16/24 20:18
APTT 27.4 Sec (23.4-35.0) 08/16/24 20:18
Lactic Acid Cancelled 08/16/24 23:45
Total Bilirubin Cancelled 08/16/24 20:18
AST Cancelled 08/16/24 20:18
ALT Cancelled 08/16/24 20:18
Alkaline Phosphatase Cancelled 08/16/24 20:18
Impression/Plan
-
A/P: Patient is a 79y M with PMH significant for hypertension, hypothyroidism and prior stenting of L carotid pseudoaneurysm who presents to ED complaining of redness overlying an area of chronic swelling.
Chronic Left Neck Hematoma
Acute Erythema - Possible Cellulitis / Abscess
Left Carotid Bifurcation Pseudoaneurysm s/p Stenting
- Admit for further evaluation and treatment.
- Chronic swelling - but new redness and mild tenderness.
- Continue IV abx for now. Follow-up culture data.
- Follow temperature curve.
- Vascular Surgery evaluation for additional recommendations.
- CTA done in the ED this evening shows complex collection which is not significantly changed in size. Rim-enhancing quality also seen previously.
- Follow for any new symptoms / complaints.
Benign Hypertension
- Stable. Continue outpatient medications with holding parameters.
ASCVD
- History of TIAs and carotid stent placement (as noted above).
- Continue ASA uninterrupted. Hold Plavix acutely.
- Continue other CV medications.
Hypothyroidism
- Continue current T4 replacement.
Bladder Cancer
History of Hodgkin's Lymphoma
- No acute issues.
DVT Prophylaxis: SCDs
Code Status: Full
[2024-08-16 23:00] VITALS: BP 152/71
[2024-08-17] VITALS: BP 132/76
[2024-08-17 01:00] VITALS: BP 140/78
[2024-08-17 01:52] VITALS: BP 141/83
[2024-08-17 01:53] VITALS: BMI 22.4
[2024-08-17] MEDS: NSS 1000 IV ×2 (02:14→14:03)
[2024-08-17] MEDS: UNASYN IV ×4 (02:15→20:59)
--- NOTE | 2024-08-17 03:17 | PTCARENOTE ---
Received pt from the ED via stretcher, ambulates independently and steadily from stretcher to hospital bed. Pt AAOx3, forgetful to detail, no c/o pain at this time. Medsurg, murmur present. +bowel sounds, continent. IVF initiated per order, see MAR.
Remainder of assessment as documented. Reviewed call rhodes with pt, although steady on his feet, advised to call for assistance when getting out of bed. Pt updated on POC for the evening. Resting comfortably in bed at this time, call rhodes within
reach.
[2024-08-17 06:00] VITALS: BMI 22.4
[2024-08-17 06:25] LABS: Hematocrit 42.1 % (39.0-52.0); Hemoglobin 14.1 g/dL (13.0-18.0); Mean Corp Hgb Conc. 33.5 g/dL (33.0-37.0); Mean Corpuscular Hgb 32.1 pg (27.0-31.0); Mean Corpuscular Volume 95.9 fL (80.0-94.0); Mean Platelet Volume 10.7 fL (7.4-10.4); Platelet Count 204 10^3/uL (130-400); Red Blood Cell Count 4.39 10^6/uL (4.70-6.10); Red Cell Dist. Width 15.9 % (11.5-14.5); White Blood Cell Count 9.8 10^3/uL (4.8-10.8)
[2024-08-17 06:58] LABS: Blood Urea Nitrogen 23 mg/dl (9-20); Calcium 9.4 mg/dl (8.4-10.2); Carbon Dioxide 27 mmol/L (22-30); Chloride 103 mmol/L (98-107); Estimated Creatinine Clearance 61 ml/min; Glucose 78 mg/dl (70-99); Sodium 140 mmol/L (135-145); eGFR > 60.00
[2024-08-17 07:17] VITALS: BP 106/66
[2024-08-17] MEDS: NORVASC PO (08:44)
[2024-08-17] MEDS: LOW STRENGTH ASPIRIN 81 MG PO (08:44)
--- NOTE | 2024-08-17 11:15 | WOUNDNOTE ---
[facility] RN NOTE: Consult received for right elbow wound. Spoke to patient who said he surgery for skin cancer 2 weeks ago. His instructions are to allow steri-strips to fall off on their own. At time of assessment, steri-strips were intact. Will sign
off.
--- NOTE | 2024-08-17 13:53 | W.PN.HOSP.TC ---
Today's Communication/Plan
-
ENT
Vascular surgery
Assessment / Plan
Assessment / Plan
Gen-AAOx3, NAD
HEENT-NC, AT, anicteric, clear oral mm
Neck-supple. Left anterior neck mass with surrounding erythema without tenderness.
CV-reg, no M, +S1/S2
Lungs-clear B/L
Abd-soft, NT, ND
Ext-no edema
Musculoskeletal-no cyanosis, clubbing
Skin-warm and dry
Neuro-grossly non-focal
Psych-calm, cooperative
Left anterior neck fluid collection -appears rim-enhancing on CT. At site of previous pseudoaneurysm repair. Differential diagnosis includes hematoma versus seroma, cannot rule out infection.
Erythema surrounding the left neck swelling is apparently new. Does not look toxic. No signs or symptoms of sepsis.
Continue empiric Unasyn for now pending further input from ENT, vascular surgery. He did receive a dose of vancomycin last night. Ideally would need fluid aspirated to rule out infection. Blood culture sent last night are pending.
Left carotid bifurcation pseudoaneurysm -s/p carotid stent graft placement October 2023 in left ICA/CCA. Has been on dual antiplatelet therapy. Plavix held on admission, continue aspirin.
Hypothyroidism -levothyroxine.
Hyperlipidemia -atorvastatin.
TIAs
History of Hodgkin's lymphoma -treated 20 years ago with radiation, splenectomy.
History of bladder cancer -treated with TURBT, BCG.
Essential hypertension -stable.
Basal cell cancer
Full code
Updated at the bedside.
Anticipated Discharge: > 48 hours
Subjective/Interval History
-
Date of Service: August 17, 2024
Patient seen and examined. No complaints.
Objective Data
-
Labs:
Laboratory Results
08/17/24
05:51
WBC 9.8
Hgb 14.1
Hct 42.1
Plt Count 204
Sodium 140
Potassium 4.0
Chloride 103
Carbon Dioxide 27
BUN 23 H
Creatinine 1.1
Glucose 78
Calcium 9.4
Vital Signs:
Vital Signs
Temp Pulse Resp BP Pulse Ox
97.7 F 86 17 106/66 95
08/17/24 07:17 08/17/24 08:44 08/17/24 07:17 08/17/24 08:44 08/17/24 08:00
Review of Systems
-
History Source: Patient
All other systems: Reviewed and negative
--- NOTE | 2024-08-17 14:09 | CM ---
Met with patient and his at the bedside; initial assessment completed
IMM benefit explained; form signed @ [id number]
Pharmacy verified: [facility] @ [address] [facility], [place], [place]
Patient and live in a multilevel home; 55+ community; 2 steps to enter; 12 steps between floors; railing on stairs; powder room on main level
PLOF: reported he is independent with ambulation, stairs and ADLs; retired; Drives
will transport home
NO SNF utilization history; home health services / [facility] 2023
Plan: discharge to home when medically stable; do not anticipate any services but CM will monitor and support accordingly
--- NOTE | 2024-08-17 15:40 | CON.MD ---
Consultation - Medical
-
Chief complaint: Left lower neck swollen, red mass
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 Since that time, approximately a year ago, the patient has had a left lower neck mass
which has been thought to be a hematoma/pseudoaneurysm. This was very stable until yesterday when the patient noted increased swelling and some redness. He has some tenderness but it is not particularly painful. He does not have a fever and his
white count is normal. The patient is otherwise pretty healthy. He is currently being treated with ampicillin/sulbactam. I was asked to see the patient regarding this lesion.
Past medical history:
Allergies: The patient has hayfever but no known drug allergies
Home medications: Amlodipine 5 mg p.o. daily, aspirin 81 mg p.o. daily, atorvastatin 80 mg p.o. nightly, clopidogrel 75 mg p.o. daily, levothyroxine 50 mcg p.o. daily,
Hospitalizations: The patient was hospitalized for carotid artery stent about a year ago. He is currently hospitalized for redness and swelling of a left lower neck pseudoaneurysm/hematoma
Medical problems: Hematoma of neck, aneurysm of carotid artery, complication of other artery following the procedure, hypercholesterolemia, chronically anticoagulated with clopidogrel, hypothyroidism, hypertension
Social history: The patient is a non-smoker
Past surgical history: The patient underwent left carotid artery stent placement about a year ago. This was done via transfemoral catheter.
Review of systems, left lower neck swelling with minor tenderness and redness. Patient denies fever. He has no drainage from the site
Physical examination:
Head: Atraumatic and normocephalic
Nose: Normal
Ears: Normal
Oral cavity: Normal to exam
Salivary glands: Normal
Thyroid gland: Normal to examination
Neck: The patient has a left lower neck swelling which is only mildly tender. There is questionable fluctuance of the superficial part of the lesion. No adenopathy is noted. No other masses are seen.
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 He underwent transfemoral placement of a left carotid
artery stent. The swelling did not resolve but was stable until yesterday when he began to experience some redness and minor tenderness as well as increase in swelling. He is currently on ampicillin/sulbactam. By palpation, I get the impression
that the superficial portion of the lesion may be fluctuant. If that is the case, the presence of fluid within the lesion would make him prone to infection and may result in the current clinical picture. This makes it analogous to an infected
cyst. As such, treatment with antibiotics may be adequate. Given his history, caution is indicated. If he improves over the next day or so he can probably be switched to oral antibiotics and discharged. If he fails to improve, he may benefit
from an attempt at superficial drainage possibly with ultrasound guidance. I will evaluate the patient tomorrow to see if there is any change in his status.
[2024-08-17 15:47] VITALS: BP 105/71
--- NOTE | 2024-08-17 17:05 | CON.VAS ---
Addendum entered and electronically signed by Jordan Mckee III, MD 08/17/24 18:32:
This patient was seen and examined in collaboration with CHUY Velasquez. I agree with the history and physical exam as well as the assessment and plan. I have the following additions:
Known to me
Prior covered stent placement for left common carotid artery pseudoaneurysm
History as detailed
Returns with left neck infection
Cross-sectional imaging personally reviewed
No extravasation currently
Stent in good position
Large mass with fluid surrounding the left common carotid and extending to the superficial structures of the left neck consistent with physical exam
I discussed this case with Dr. Cobos as well as Dr. Gerardo Aguilar
For now, the patient is on antibiotics but my clinical suspicion is that this will require more than antibiotics alone
I suspect he will need drainage and possible exploration to determine the etiology of this
I have previously sent him for outpatient ENT evaluation for the persistent neck mass following covered stent repair of the carotid pseudoaneurysm. Based on the persistence of the mass after PSA exclusion I have not had the impression that this was
simply a residual hematoma cavity.
Explained my impression as well as the initial plan to patient and his .
Will follow closely
Signed:
Jordan Mckee III, MD
[facility]
[phone] ([id number])
Original Note:
Consultation
Consultation Request
Date/Time Consultation Performed: 08/17/24
Requesting Provider: Hospitalist
Performing Provider: Sara Mcgill NP-C for Jordan Mckee III, MD
Reason for Consultation: Left lower neck mass
Medical History
-
Chief Complaint: Left lower neck mass with new onset erythema
History of Present Illness:
This is a 79-year-old male with significant past medical history of hypertension, hypothyroidism, Hodgkin's Lymphoma s/p XRT and Splenectomy, Bladder Cancer s/p TURBT and BCG, Left Carotid Bifurcation Pseudoaneurysm, TIA, skin cancer, and hearing
loss who presents to [facility] ED on 08/16/2024 with reports of worsening tenderness and erythema to known left lower neck mass. Patient is known to the vascular surgery service for past history of left internal carotid artery pseudoaneurysm
requiring stent graft placement on 10/29/2023. Around the time of pseudoaneurysm patient had developed a left neck mass that has continued following our surgical intervention. Patient was seen by ENT specialist out of [facility] network who who
recommended continue conservative management and did not feel that neoplasm was source of mass. However, patient notes acute change starting yesterday morning of left neck mass redness with worsening pain particularly with touch to the mass. He
denies fever, chills, nausea, vomiting, and difficulty swallowing. Denies any recent trauma or injury. Patient had CTA head and neck done in ED that showed left common carotid artery is patent.
Past Medical History
Past Medical History: HTN, Hypothyroidism and Other (Hodgkin's Lymphoma s/p XRT and Splenectomy, Bladder Cancer s/p TURBT and BCG, Left Carotid Bifurcation Pseudoaneurysm, TIA, skin cancer, hearing loss)
Past Surgical History: Other (Splenectomy TURBT, Mastoid Resection Tympanoplasty, Skin Cancer Excisions, Left Carotid Stenting - CCA and ICA (October 2023))
Social History
Tobacco: Non-Smoker
Alcohol: Occasional
Personal:
Living: With Family
Allergies / Home Medications
Allergy/AdvReac Type Severity Reaction Status Date / Time
hayfever Allergy Itching Uncoded 08/16/24 16:53
�Medication �Instructions �Recorded �Confirmed �Type
atorvastatin 80 mg tablet (Lipitor) 80 mg PO HS High Cholesterol 10/30/23 08/16/24 History
levothyroxine 50 mcg tablet 50 mcg PO HS Thyroid 10/30/23 08/16/24 History
(Synthroid)
aspirin 81 mg chewable tablet 81 mg PO DAILY #30 tabs 10/31/23 08/16/24 Rx
(Children's Aspirin)
clopidogrel 75 mg tablet 75 mg PO DAILY #30 tabs 10/31/23 08/16/24 Rx
amlodipine 5 mg tablet 5 mg PO DAILY Blood Pressure 08/16/24 08/16/24 History
Review of Systems
-
History Source: Patient
Constitutional: Reports No Symptoms
EENT: Reports Other (Left lower neck mass with erythema and new onset tenderness)
Respiratory: Reports No Symptoms
Cardiac: Reports No Symptoms
Abdomen/GI: Reports No Symptoms
: Reports No Symptoms
Musculoskeletal: Reports No Symptoms
Skin: Reports Other (Left lower neck mass)
Neurological: Reports No Symptoms
Endocrine: Reports No Symptoms
Physical Exam
Vital Signs
Temp Pulse Resp BP Pulse Ox
98.2 F 82 18 105/71 96
08/17/24 15:47 08/17/24 15:47 08/17/24 15:47 08/17/24 15:47 08/17/24 15:47
Lab Results
08/17/24 05:51
08/17/24 05:51
Physical Exam
General: No Apparent Distress and Comfortable
HEENT: Normocephalic, Anicteric, Atraumatic and Other (Left lower neck mass with erythema and tenderness to palpation)
Respiratory: Non Labored Respirations
Cardiac: Negative JVD
GI: Soft, Non Tender and Non Distended
Musculoskeletal: No Edema
Skin: Warm
Neuro: AO x 3
Assessment / Plan
-
Assessment: 79-year-old male with chronic left neck suspected hematoma concern for infection prompting admission
Plan:
Recommend an ENT evaluation, appreciate their recommendations. Dr. Jordan Mckee spoke to ENT physician Dr. Cobos over the phone to discuss case and current recommendation is conservative management with IV antibiotics and observe over the next
48 hours. If there is not improvement in left neck mass will require either IR consultation for aspiration and analysis of fluid or possible OR for I&D. If ultimately incision and drainage is recommended would advise collaboration of ENT with our
vascular surgery service to perform surgery. Final surgical recommendations per vascular attending.
I performed this shared service with the attending. I evaluated the patient [id number] and have entered clinical documentation as shown in the encounter note. I performed the following component(s):�history and physical exam. Note that medical
decision making is not final until attested by vascular attending.
[2024-08-17] MEDS: LIPITOR 80 MG PO (20:59)
[2024-08-17] MEDS: SYNTHROID 50 MCG PO (20:59)
[2024-08-17 23:00] VITALS: BP 123/83
[2024-08-18] MEDS: UNASYN IV ×4 (01:19→20:16)
[2024-08-18] MEDS: NSS 1000 IV (04:37)
[2024-08-18 05:13] VITALS: BMI 21.8
[2024-08-18 07:05] VITALS: BP 136/81
[2024-08-18] MEDS: LOW STRENGTH ASPIRIN 81 MG PO (08:16)
[2024-08-18] MEDS: NORVASC 5 MG PO (08:17)
--- NOTE | 2024-08-18 08:27 | W.PN.ENT ---
Today's Communication
-
seen at bedside
Impression / Plan
-
left lower neck swelling/tenderness
localized like infected cyst
? pseudocyst
continue antibiotics for now
Subjective Data
-
patient with swelling and minor tenderness
Objective Data
-
Vital Signs
Temp Pulse Resp BP Pulse Ox
97.6 F 81 18 136/81 96
08/18/24 07:05 08/18/24 08:17 08/18/24 07:05 08/18/24 08:17 08/18/24 07:05
Intake & Output
08/17/24 08/18/24 08/19/24
06:59 06:59 07:59
Intake:
Oral fluids 1230 / 1230
IV fluids (Total) 960 / 960
IV piggybacks 240 / 240
Other:
Number of approximated MODERATE 3 7
amounts of urine
Lab Results
08/17/24 05:51
08/17/24 05:51
PT 13.5 Sec (11.4-14.6) 08/16/24 20:18
INR 0.98 08/16/24 20:18
APTT 27.4 Sec (23.4-35.0) 08/16/24 20:18
Calcium 9.4 mg/dl (8.4-10.2) 08/17/24 05:51
Total Bilirubin Cancelled 08/16/24 20:18
AST Cancelled 08/16/24 20:18
ALT Cancelled 08/16/24 20:18
Alkaline Phosphatase Cancelled 08/16/24 20:18
Physical Exam
-
left lower neck swelling with tenderness
small area fluctuance, localized
Chest: Clear
Respiratory: Clear
--- NOTE | 2024-08-18 12:32 | W.PN.HOSP.TC ---
Today's Communication/Plan
-
continue antibx
Assessment / Plan
Assessment / Plan
Gen-AAOx3, NAD
HEENT-NC, AT, anicteric, clear oral mm
Neck-supple. Left anterior neck mass with surrounding erythema without tenderness.
CV-reg, no M, +S1/S2
Lungs-clear B/L
Abd-soft, NT, ND
Ext-no edema
Musculoskeletal-no cyanosis, clubbing
Skin-warm and dry
Neuro-grossly non-focal
Psych-calm, cooperative
Left anterior neck fluid collection -appears rim-enhancing on CT. At site of previous pseudoaneurysm repair. Differential diagnosis includes hematoma versus seroma, cannot rule out infection.
Erythema surrounding the left neck swelling is apparently new. Does not look toxic. No signs or symptoms of sepsis.
Erythema is improved compared to yesterday, still swollen.
Continue empiric Unasyn for now. Defer decision on drainage to ENT/vascular.
Left carotid bifurcation pseudoaneurysm -s/p carotid stent graft placement October 2023 in left ICA/CCA. Has been on dual antiplatelet therapy. Plavix held on admission, continue aspirin.
Hypothyroidism -levothyroxine.
Hyperlipidemia -atorvastatin.
TIAs
History of Hodgkin's lymphoma -treated 20 years ago with radiation, splenectomy.
History of bladder cancer -treated with TURBT, BCG.
Essential hypertension -stable.
Basal cell cancer
Full code
Updated at the bedside.
Anticipated Discharge: 24 - 48 hours
Subjective/Interval History
-
Date of Service: August 18, 2024
Patient seen/examined. No complaints.
Objective Data
-
Vital Signs:
Vital Signs
Temp Pulse Resp BP Pulse Ox
97.6 F 81 18 136/81 96
08/18/24 07:05 08/18/24 08:17 08/18/24 07:05 08/18/24 08:17 08/18/24 09:31
I&O
08/17/24 08/18/24 08/19/24
06:59 06:59 07:59
Intake Total 2430 / 243
Balance 243 / 243
Review of Systems
-
History Source: Patient
All other systems: Reviewed and negative
--- NOTE | 2024-08-18 13:05 | W.PN.UPDATE ---
Update Note
Progress Note Update
Seen and evaluated. Patient without any new complaints.
Left neck with palpable mass unchanged. Anteriorly it feels somewhat fluctuant or cystic. However the bulk of the posterior component of it feels rather firm. Mildly tender. No pulsatility.
CT scan from this admission reviewed. I also reviewed angiography images from 10/29/[address] scan dated 10/29/2023 prior to treatment of the pseudoaneurysm.
Plan/ Pseudoaneurysm that had occurred 10/29/2023, remains successfully excluded with stent graft. I do not think this is a primary vascular issue currently. Certainly infection is on the differential (could be an infected hematoma, but seems very
late and rather firm on exam to be a hematoma). Consideration for soft tissue mass or recurrent tumor to be considered. Will defer to ENT for further workup, but would consider MRI and/or it may eventually require exploration and/or biopsy..
However this is outside of my area of specialty and therefore will defer to ENT regarding the management paradigm.
[2024-08-18 15:05] VITALS: BP 129/75
[2024-08-18] MEDS: SYNTHROID 50 MCG PO (21:19)
[2024-08-18] MEDS: LIPITOR 80 MG PO (21:19)
[2024-08-18 23:17] VITALS: BP 137/83
[2024-08-19] MEDS: UNASYN IV ×4 (03:02→20:21)
[2024-08-19 06:00] VITALS: BMI 21.7
[2024-08-19 07:02] VITALS: BP 144/86
[2024-08-19] MEDS: NORVASC 5 MG PO (08:26)
[2024-08-19] MEDS: LOW STRENGTH ASPIRIN 81 MG PO (08:26)
--- NOTE | 2024-08-19 11:49 | W.PN.HOSP.TC ---
Today's Communication/Plan
-
Await MRI
Assessment / Plan
Assessment / Plan
Gen-AAOx3, NAD
HEENT-NC, AT, anicteric, clear oral mm
Neck-supple. Left anterior neck mass with surrounding erythema without tenderness. Now developing superficial abscess under the skin.
CV-reg, no M, +S1/S2
Lungs-clear B/L
Abd-soft, NT, ND
Ext-no edema
Musculoskeletal-no cyanosis, clubbing
Skin-warm and dry
Neuro-grossly non-focal
Psych-calm, cooperative
Left anterior neck mass -fluid collection appears rim-enhancing on CT. At site of previous pseudoaneurysm repair. Differential diagnosis includes hematoma versus seroma, cannot rule out infection. Concern for possible malignancy.
Erythema surrounding the left neck swelling is apparently new. Does not look toxic. No signs or symptoms of sepsis.
Continue empiric Unasyn for now. Defer decision on drainage to ENT/vascular.
Soft tissue MRI of neck ordered. Discussed with ENT and vascular surgery.
Left carotid bifurcation pseudoaneurysm -s/p carotid stent graft placement October 2023 in left ICA/CCA. Has been on dual antiplatelet therapy. Plavix held on admission, continue aspirin.
Hypothyroidism -levothyroxine.
Hyperlipidemia -atorvastatin.
TIAs
History of Hodgkin's lymphoma -treated 20 years ago with radiation, splenectomy.
History of bladder cancer -treated with TURBT, BCG.
Essential hypertension -stable.
Basal cell cancer
Full code
Anticipated Discharge: 24 - 48 hours
Subjective/Interval History
-
Date of Service: August 19, 2024
Patient seen and examined. No new complaints.
Objective Data
-
Vital Signs:
Vital Signs
Temp Pulse Resp BP Pulse Ox
97.7 F 78 18 144/86 97
08/19/24 07:02 08/19/24 08:26 08/19/24 07:02 08/19/24 08:26 08/19/24 08:40
I&O
08/18/24 08/19/24 08/20/24
05:59 06:59 06:59
Intake Total
Balance
Review of Systems
-
History Source: Patient
All other systems: Reviewed and negative
[2024-08-19 15:05] VITALS: BP 130/79
--- NOTE | 2024-08-19 15:05 | W.PN.ENT ---
Today's Communication
-
patient seen at bedside
Impression / Plan
-
left lower neck swelling/tenderness
localized like infected cyst
? pseudocyst
procedure: incision and drainage performed after injection 2% lidocaine with epinephrine, small amount pus evacuated, culture and sensitivity aerobic/anaerobic sent
continue antibiotics for now
await mri scan tomorrow
Subjective Data
-
patient with swelling and minor tenderness, swelling a little worse, coming to a head
Objective Data
-
Vital Signs
Temp Pulse Resp BP Pulse Ox
97.7 F 78 18 144/86 97
08/19/24 07:02 08/19/24 08:26 08/19/24 07:02 08/19/24 08:26 08/19/24 08:40
Intake & Output
08/18/24 08/19/24 08/20/24
05:59 06:59 06:59
Intake:
Oral fluids
IV fluids (Total)
IV piggybacks
Other:
Number of approximated SMALL
amounts of urine
Number of approximated MODERATE
amounts of urine
Number of approximated LARGE
amounts of urine
How many times incontinent
SATURATED amount urine
Number of unmeasured liquid
stools
Rectum
Lab Results
08/17/24 05:51
08/17/24 05:51
PT 13.5 Sec (11.4-14.6) 08/16/24 20:18
INR 0.98 08/16/24 20:18
APTT 27.4 Sec (23.4-35.0) 08/16/24 20:18
Calcium 9.4 mg/dl (8.4-10.2) 08/17/24 05:51
Total Bilirubin Cancelled 08/16/24 20:18
AST Cancelled 08/16/24 20:18
ALT Cancelled 08/16/24 20:18
Alkaline Phosphatase Cancelled 08/16/24 20:18
Physical Exam
-
neck lesion red with increased swelling
Chest: Clear
Respiratory: Clear
Data Reviewed
-
Radiology Results: Report Reviewed
--- NOTE | 2024-08-19 16:15 | CM ---
Met with patient and
Dr. Cobos ENT to see patient today
MRI ordered
PLAN: Home, currently no needs anticipated
[2024-08-19] MEDS: TYLENOL 650 MG PO (17:39)
[2024-08-19] MEDS: SYNTHROID 50 MCG PO (21:27)
[2024-08-19] MEDS: LIPITOR 80 MG PO (21:27)
[2024-08-19 23:22] VITALS: BP 130/75
[2024-08-20] MEDS: UNASYN IV ×4 (02:27→20:47)
[2024-08-20 06:00] VITALS: BMI 21.6
[2024-08-20 07:05] VITALS: BP 131/86
--- NOTE | 2024-08-20 08:33 | W.PN.HOSP.TC ---
Today's Communication/Plan
-
IV antibiotics. Plan for MRI today.
Assessment / Plan
Assessment / Plan
Gen-AAOx3, NAD
HEENT-NC, AT, anicteric, clear oral mm
Neck-supple. Left anterior neck mass with surrounding erythema with some tenderness on palpation.
CV-reg, no M, +S1/S2
Lungs-clear B/L
Abd-soft, NT, ND
Ext-no edema
Musculoskeletal-no cyanosis, clubbing
Skin-warm and dry
Neuro-grossly non-focal
Psych-calm, cooperative
A/P:
Left anterior neck mass in the setting of prior carotid stent-Differential diagnosis includes hematoma versus seroma versus abscess versus malignancy. ENT and vascular surgery consult appreciated. Reviewed CTA of the head and neck. Status post I&D
yesterday 08/19, cultures pending. Continue empiric IV Unasyn. Plan for MRI cervical area today. Discussed with at bedside.
Left carotid bifurcation pseudoaneurysm -s/p carotid stent graft placement October 2023 in left ICA/CCA. Has been on dual antiplatelet therapy. Plavix held on admission, continue aspirin.
Hypothyroidism -levothyroxine.
Hyperlipidemia -atorvastatin.
TIAs-on antiplatelet and statin
History of Hodgkin's lymphoma -treated 20 years ago with radiation, splenectomy.
History of bladder cancer -treated with TURBT, BCG.
Essential hypertension -stable.
Basal cell cancer
Full code
Total time spent on today's encounter was 52 minutes which included time spent in counseling the patient/family regarding diagnosis and treatment plan as listed above, goals of care, and symptom management. Case was discussed with nursing staff,
specialists, and care coordinators/case management. All labs and imaging personally reviewed by me. Remainder the time spent in detailed review of previous records, lab data, imaging, and other medical provider documentation.
Anticipated Discharge: > 48 hours
Subjective/Interval History
-
Date of Service: August 20, 2024
Patient with mild discomfort on the neck area. No nausea or vomiting. Afebrile
Objective Data
-
Vital Signs:
Vital Signs
Temp Pulse Resp BP Pulse Ox
97.8 F 81 16 131/86 95
08/20/24 07:05 08/20/24 07:05 08/20/24 07:05 08/20/24 07:05 08/20/24 07:05
I&O
08/19/24 08/20/24 08/21/24
06:59 06:59 06:59
Intake Total 1959
Balance 1959
[2024-08-20] MEDS: NORVASC 5 MG PO (08:39)
[2024-08-20] MEDS: LOW STRENGTH ASPIRIN 81 MG PO (08:39)
--- NOTE | 2024-08-20 15:19 | CM ---
Met with patient and his
Still awaiting MRI
PLAN: home, no needs anticipated
to transport
[2024-08-20 15:25] VITALS: BP 121/75
[2024-08-20] MEDS: LIPITOR 80 MG PO (22:18)
[2024-08-20] MEDS: SYNTHROID 50 MCG PO (22:19)
[2024-08-20 23:00] VITALS: BP 121/78
[2024-08-21] MEDS: UNASYN IV ×4 (01:40→19:47)
[2024-08-21 06:33] VITALS: BMI 21.6
[2024-08-21 06:42] LABS: % Basophils 0.7 % (0-2); % Eosinophils 3.1 % (0-6); % Immature Granulocytes 0.5 % (0-0.5); % Monocytes 14.2 % (1.7-9.3); % Neutrophils 55.5 % (42.2-75.2); Absolute Basophils 0.1 10^3/uL (0-0.2); Absolute Eosinophils 0.3 10^3/uL (0-0.7); Absolute Lymphocytes 2.2 10^3/uL (1.2-3.4); Absolute Monocytes 1.2 10^3/uL (0.1-0.6); Absolute Neutrophils 4.7 10^3/uL (1.4-6.5); Hematocrit 41.7 % (39.0-52.0); Hemoglobin 13.9 g/dL (13.0-18.0); Mean Corp Hgb Conc. 33.3 g/dL (33.0-37.0); Mean Corpuscular Hgb 32.1 pg (27.0-31.0); Mean Corpuscular Volume 96.3 fL (80.0-94.0); Mean Platelet Volume 10.7 fL (7.4-10.4); Nucleated Red Blood Cells % 0 % (-); Platelet Count 205 10^3/uL (130-400); Red Blood Cell Count 4.33 10^6/uL (4.70-6.10); Red Cell Dist. Width 15.9 % (11.5-14.5); White Blood Cell Count 8.5 10^3/uL (4.8-10.8)
[2024-08-21 06:57] VITALS: BP 126/72
[2024-08-21 07:28] LABS: Blood Urea Nitrogen 20 mg/dl (9-20); Carbon Dioxide 27 mmol/L (22-30); Chloride 106 mmol/L (98-107); Estimated Creatinine Clearance 59 ml/min; Glucose 81 mg/dl (70-99); Sodium 138 mmol/L (135-145); eGFR > 60.00
[2024-08-21] MEDS: LOW STRENGTH ASPIRIN 81 MG PO (07:57)
[2024-08-21] MEDS: NORVASC 5 MG PO (07:57)
--- NOTE | 2024-08-21 08:26 | W.PN.HOSP.TC ---
Today's Communication/Plan
-
IV antibiotics. ENT reeval
Assessment / Plan
Assessment / Plan
Gen-AAOx3, NAD
HEENT-NC, AT, anicteric, clear oral mm
Neck-supple. Left anterior neck mass with surrounding erythema with some tenderness on palpation and some drainage.
CV-reg, no M, +S1/S2
Lungs-clear B/L
Abd-soft, NT, ND
Ext-no edema
Musculoskeletal-no cyanosis, clubbing
Skin-warm and dry
Neuro-grossly non-focal
Psych-calm, cooperative
A/P:
Left anterior neck mass in the setting of prior carotid stent-Differential diagnosis includes hematoma versus seroma versus abscess versus malignancy. ENT and vascular surgery consult appreciated. Status post I&D on 08/19, cultures pending. Continue
empiric IV Unasyn. MRI cervical area shows likely abscess close to stent. ENT reeval today. ID consult. Discussed with at bedside.
Left carotid bifurcation pseudoaneurysm -s/p carotid stent graft placement October 2023 in left ICA/CCA. Has been on dual antiplatelet therapy. Plavix held on admission, continue aspirin.
Hypothyroidism -levothyroxine.
Hyperlipidemia -atorvastatin.
TIAs-on antiplatelet and statin
History of Hodgkin's lymphoma -treated 20 years ago with radiation, splenectomy.
History of bladder cancer -treated with TURBT, BCG.
Essential hypertension -stable.
Basal cell cancer
Full code
Total time spent on today's encounter was 52 minutes which included time spent in counseling the patient/family regarding diagnosis and treatment plan as listed above, goals of care, and symptom management. Case was discussed with nursing staff,
specialists, and care coordinators/case management. All labs and imaging personally reviewed by me. Remainder the time spent in detailed review of previous records, lab data, imaging, and other medical provider documentation.
Anticipated Discharge: 24 - 48 hours
Subjective/Interval History
-
Date of Service: August 21, 2024
Patient feels better overall. Afebrile today
Objective Data
-
Labs:
Laboratory Results
08/21/24
05:36
WBC 8.5
Hgb 13.9
Hct 41.7
Plt Count 205
Sodium 138
Potassium 4.0
Chloride 106
Carbon Dioxide 27
BUN 20
Creatinine 1.1
Glucose 81
Calcium 9.0
Vital Signs:
Vital Signs
Temp Pulse Resp BP Pulse Ox
98.4 F 82 17 126/72 98
08/21/24 06:57 08/21/24 07:57 08/21/24 06:57 08/21/24 07:57 08/21/24 06:57
I&O
08/20/24 08/21/24 08/22/24
06:59 06:59 06:59
Intake Total 1959 420 / 420 720 / 720
Balance 1959 420 / 420 720 / 720
--- NOTE | 2024-08-21 13:14 | W.PN.ENT ---
Today's Communication
-
seen at bedside
Impression / Plan
-
left lower neck swelling/tenderness
MRI hematoma with infection likely
continue antibiotics for now
cultures - no growth so far
Subjective Data
-
patient with swelling and minor tenderness, ?granulation tissue at incision site
Objective Data
-
Vital Signs
Temp Pulse Resp BP Pulse Ox
98.4 F 82 17 126/72 98
08/21/24 06:57 08/21/24 07:57 08/21/24 06:57 08/21/24 07:57 08/21/24 10:30
Intake & Output
08/20/24 08/21/24 08/22/24
06:59 06:59 06:59
Intake:
Oral fluids 1720 / 1720 420 / 420 480 / 480
IV piggybacks 240 / 240 240 / 240
Other:
Number of approximated MODERATE 2 3
amounts of urine
Number of approximated LARGE 2 3
amounts of urine
Number of unmeasured liquid
stools
Rectum 1
Lab Results
08/21/24 05:36
08/21/24 05:36
PT 13.5 Sec (11.4-14.6) 08/16/24 20:18
INR 0.98 08/16/24 20:18
APTT 27.4 Sec (23.4-35.0) 08/16/24 20:18
Calcium 9.0 mg/dl (8.4-10.2) 08/21/24 05:36
Total Bilirubin Cancelled 08/16/24 20:18
AST Cancelled 08/16/24 20:18
ALT Cancelled 08/16/24 20:18
Alkaline Phosphatase Cancelled 08/16/24 20:18
Physical Exam
-
minimal discharge, ?granulation tissue at incision site
Chest: Clear
Respiratory: Clear
Data Reviewed
-
Radiology Results: Report Reviewed
--- NOTE | 2024-08-21 14:42 | CON.ID ---
Consultation
-
Date/Time Consultation Requested: August 21, 2024 1048
Date/Time Consultation Performed: August 21, 2024 1445
Requesting Provider: Dr. Elliot Manriquez
Performing Provider: Dr. Sara Flynn
Reason for Consultation: Neck abscess
Chief Complaint / Past History
Chief Complaint
Left neck redness and pain
History of Present Illness
History obtained predominantly from his radiologist son Dr. Aguilar since patient has partial hearing loss. Patient's also present at bedside. 79-year-old male who presented to the hospital on August 16 with acute redness and tenderness
over the chronic left neck induration site. He had remote history of Hodgkin's lymphoma on the left neck status post radiation and splenectomy about 25 years ago. He then developed basal cell carcinoma over the left neck which was biopsied and
resected; soon after he developed induration about the size of a golf golf ball over that area. He has had multiple workup including evaluation for malignancy which were unremarkable. He had multiple imaging done at outside hospitals. Patient had
TIAs and CVAs. 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 On October 29, 2023, he underwent left common carotid artery and internal carotid artery stent graft placement. The golf ball size lump persisted postsurgery
and thought to be most likely walled off pseudoaneurysm/hematoma from previous. On August 16, patient woke up and noted that the left neck induration was red and tender to the touch. No fevers or chills. He presented to the hospital and was started
on Unasyn. Vascular ultrasound showed patent internal stents, stable residual hematoma 6.1 x 2.4 x 4.3 cm no flow seen on color Doppler. CT angiogram of the head and neck showed a mildly enlarged rim-enhancing fluid collection at the previous
pseudoaneurysm repair site probable hematoma, no stent leak or stenosis. In the meantime the left neck induration developed a small garzon. ENT lanced the site with small amount of pus noted, cultures negative to date. MRI of the head and neck
showed a focal mass/collection in the left neck posterior adjacent to the left carotid stent extending to the anterior skin surface. Vascular surgeons are also involved at this time. Per the erythema seems to have improved. Patient denies
headache or sinus congestion. No sore throat. Per he has had recent multiple dental work done including a crowns on the left side. He does shave his neck. Otherwise no other trauma to the area. No night sweats. No fevers or chills. No
weight loss.
Past History
Additional Past Medical History:
Remote Hodgkin's lymphoma status post radiation to left neck and splenectomy (25 years ago).
history of basal cell carcinoma left neck s/p resection
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
Hypertension
Hypothyroidism
CVA
Bladder cancer status post TURBT and BCG
History of left mastoid resection and tympanoplasty
left hearing loss
Allergy History:
hayfever Allergy (Uncoded 08/16/24 16:53)
Itching
Medications Reviewed: Yes
Current Antibiotics:
Unasyn day 5
Social History
Tobacco: Non-Smoker
Alcohol: Occasional
Drug: None
Personal: Other (Son is radiologist here at .)
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
Family History
Family History: Not Pertinent
Review of Systems
Review of Systems
General: Negative Fever, Chills or Change in Appetite
HEENT: Negative Sinus Problems, Headache or Pharyngitis
Cardiovascular: Negative Chest Pain
Respiratory: Negative Dyspnea or Cough
Gasteroenterology: Negative Nausea, Vomiting or Diarrhea
Genital / Urological: Negative Dysuria or Flank Pain
Endocrine: Negative Weakness
Neurological: Negative Dizziness
All systems: All other systems were reviewed and were negative
Vital Signs
Temp Pulse Resp BP Pulse Ox
98.4 F 82 17 126/72 98
08/21/24 06:57 08/21/24 07:57 08/21/24 06:57 08/21/24 07:57 08/21/24 10:30
Physical Exam
Physical Exam
Constitutional: No Acute Distress and Non-toxic
Head: Other (No frontal or max or sinus tenderness.)
Eyes: No Conjunctival Hemorrhage and Sclera Anicteric
Pharynx: Benign
Oral: No Ulcers
Cardiovascular: Regular Rate and S1/S2
Pulmonary: Clear
Gastrointestinal: Soft, Non Tender, Non Distended and Normal Bowel Sounds
Genito-Urinary: Negative CVA Tenderness
Extremities: Negative Edema
Skin: Other (Left anterior lower neck soft induration golf ball size with mild pink erythema, tender to touch, dried blood over I+D site.)
Neurological: AO x 3; Negative Meningeal Signs
Lab / Diagnostic Study Results
08/21/24 05:36
08/21/24 05:36
Abs Immat Gran (auto) 0.0 10^3/uL (0-0.05) 08/21/24 05:36
Absolute Neuts (auto) 4.7 10^3/uL (1.4-6.5) 08/21/24 05:36
Absolute Lymphs (auto) 2.2 10^3/uL (1.2-3.4) 08/21/24 05:36
Absolute Monos (auto) 1.2 10^3/uL (0.1-0.6) H 08/21/24 05:36
Absolute Basos (auto) 0.1 10^3/uL (0-0.2) 08/21/24 05:36
Immature Gran % 0.5 % (0-0.5) 08/21/24 05:36
Neutrophils % 55.5 % (42.2-75.2) 08/21/24 05:36
Lymphocytes % 26.0 % (20.5-51.1) 08/21/24 05:36
Monocytes % 14.2 % (1.7-9.3) H 08/21/24 05:36
Eosinophils % 3.1 % (0-6) 03/11/25 05:36
Basophils % 0.7 % (0-2) 08/21/24 05:36
PT 13.5 Sec (11.4-14.6) 08/16/24 20:18
INR 0.98 08/16/24 20:18
Lactic Acid Cancelled 08/16/24 23:45
Microbiology Results
Micro:
08/16/24 20:18 Blood Culture - Preliminary
Blood/Venous No Growth in 4 days- Final report to follow
08/19/24 15:53 Anaerobic Culture - Preliminary
Neck Culture pending. Anaerobic cultures are examined after 3
days incubation. Additional information to follow.
08/19/24 15:53 Wound Culture - Preliminary
Neck No growth
Gram Stain - Preliminary
08/16/24 20:18 Blood Culture - Preliminary
Blood/Venous No Growth in 4 days- Final report to follow
08/20/24 MRI head/neck: As described, there is a focal mass/collection in the left neck, posteriorly adjacent to left carotid stent, and extending to the anterior skin surface. This likely represents abscess/phlegmon, perhaps developing within a
chronic hematoma.
08/16/24 CTA head/neck: Mildly enlarged rim-enhancing fluid collection at site of previous pseudoaneurysm repair with covered stent placement. Probable hematoma. Infected fluid cannot be excluded. No evidence of stent leak or stenosis.
Assessment / Plan
# Left neck cellulitis over previous chronic walled off hematoma/pseudoaneurysm
# hx Chronic left neck induration found to have carotid bifurcation pseudoaneurysm s/p CCA and ICA stents 10/29/2023 ( induration persisted/stable since procedure).
-MRI: there is a focal mass/collection in the left neck, posteriorly adjacent to left carotid stent, and extending to the anterior skin surface. Cannot exclude abscess/phlegmon, perhaps developing within a chronic hematoma.
- Superficial pustule lanced by ENT 08/19/24 Gram stain no wbc, no organism. Aerobic culture negative to date (on unasyn), anaerobic cx pending.
- Continue Unasyn for now.
- At time of discharge, transition to Augmentin 875mg po bid x 14days and observe.
If no resolution of erythema and tenderness, consider aspirate 'abscess' for culture when off abx for at least 1 week, if safe to do so.
Can apply warm compress.
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
Remote Hodgkin's lymphoma status post radiation to left neck and splenectomy (25 years ago).
history of basal cell carcinoma left neck s/p resection
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
Hypertension
Hypothyroidism
CVA
Bladder cancer status post TURBT and BCG
History of left mastoid resection and tympanoplasty
left hearing loss
--- NOTE | 2024-08-21 15:14 | CM ---
Patient seen today with
Ambulating halls with
IV antibiotics, MRI completed
PLAN: Home when medically stable, no needs anticipated
to transport
[2024-08-21 15:15] VITALS: BP 138/65
--- NOTE | 2024-08-21 16:38 | PTCARENOTE ---
dressing of abscess site redressed by ENT. ID consult placed. pt walking unit with . pt cooperative and pleasant. pt and mentioned weight loss to this RN despite having a good appetite. states he drinks ensure at home. Dietary consulted.
ensure vanillas added to pt diet.
[2024-08-21] MEDS: SYNTHROID 50 MCG PO (21:12)
[2024-08-21] MEDS: LIPITOR 80 MG PO (21:12)
[2024-08-21 23:12] VITALS: BP 138/89
[2024-08-22] MEDS: UNASYN IV ×2 (03:00→08:17)
[2024-08-22 06:00] VITALS: BMI 21.9
[2024-08-22 06:08] LABS: % Basophils 0.5 % (0-2); % Eosinophils 2.9 % (0-6); % Immature Granulocytes 0.4 % (0-0.5); % Lymphocytes 25.7 % (20.5-51.1); % Neutrophils 55.5 % (42.2-75.2); Absolute Eosinophils 0.3 10^3/uL (0-0.7); Absolute Lymphocytes 2.2 10^3/uL (1.2-3.4); Absolute Monocytes 1.3 10^3/uL (0.1-0.6); Absolute Neutrophils 4.7 10^3/uL (1.4-6.5); Hemoglobin 13.3 g/dL (13.0-18.0); Mean Corp Hgb Conc. 33.3 g/dL (33.0-37.0); Mean Corpuscular Hgb 32.4 pg (27.0-31.0); Mean Corpuscular Volume 97.3 fL (80.0-94.0); Nucleated Red Blood Cells % 0 % (-); Platelet Count 211 10^3/uL (130-400); Red Blood Cell Count 4.11 10^6/uL (4.70-6.10); Red Cell Dist. Width 15.9 % (11.5-14.5); White Blood Cell Count 8.5 10^3/uL (4.8-10.8)
[2024-08-22 06:28] LABS: Blood Urea Nitrogen 25 mg/dl (9-20); Calcium 8.9 mg/dl (8.4-10.2); Carbon Dioxide 26 mmol/L (22-30); Chloride 104 mmol/L (98-107); Estimated Creatinine Clearance 50 ml/min; Glucose 87 mg/dl (70-99); Potassium 3.9 mmol/L (3.5-5.1); Sodium 138 mmol/L (135-145); eGFR 55.88
[2024-08-22 07:05] VITALS: BP 125/78
[2024-08-22] MEDS: NORVASC 5 MG PO (08:15)
[2024-08-22] MEDS: LOW STRENGTH ASPIRIN 81 MG PO (08:16)
--- NOTE | 2024-08-22 08:34 | W.PN.HOSP.TC ---
Today's Communication/Plan
-
Discharge planning today
Assessment / Plan
Assessment / Plan
Gen-AAOx3, NAD
HEENT-NC, AT, anicteric, clear oral mm
Neck-supple. Left anterior neck mass with surrounding erythema with some tenderness on palpation and some drainage.
CV-reg, no M, +S1/S2
Lungs-clear B/L
Abd-soft, NT, ND
Ext-no edema
Musculoskeletal-no cyanosis, clubbing
Skin-warm and dry
Neuro-grossly non-focal
Psych-calm, cooperative
A/P:
Left anterior neck mass in the setting of prior carotid stent-Differential diagnosis includes hematoma versus seroma versus abscess versus malignancy. ENT and vascular surgery consult appreciated. Status post I&D on 08/19, cultures pending but no
growth. Continue empiric IV Unasyn. MRI cervical area shows likely abscess close to stent. ENT reeval appreciated. ID consult and recommend to switch to oral Augmentin upon discharge. Discussed with at bedside. Discussed with son over the
phone today (radiologist here). software engineering associate manager for discharge disposition. Plan to discharge today
Superficial thrombophlebitis right upper extremity-discussed about anticoagulation versus local measures and patient and family agrees to continue local measures and can have follow-up outpatient images.
Left carotid bifurcation pseudoaneurysm -s/p carotid stent graft placement October 2023 in left ICA/CCA. Has been on dual antiplatelet therapy. Plavix held on admission, continue aspirin. Restart Plavix.
Hypothyroidism -levothyroxine.
Hyperlipidemia -atorvastatin.
TIAs-on antiplatelet and statin
History of Hodgkin's lymphoma -treated 20 years ago with radiation, splenectomy.
History of bladder cancer -treated with TURBT, BCG.
Essential hypertension -stable.
Basal cell cancer
Full code
Anticipated Discharge: Today
Subjective/Interval History
-
Date of Service: August 22, 2024
Patient feels well today. Discomfort in right arm.
Objective Data
-
Labs:
Laboratory Results
08/22/24
05:41
WBC 8.5
Hgb 13.3
Hct 40.0
Plt Count 211
Sodium 138
Potassium 3.9
Chloride 104
Carbon Dioxide 26
BUN 25 H
Creatinine 1.3
Glucose 87
Calcium 8.9
Vital Signs:
Vital Signs
Temp Pulse Resp BP Pulse Ox
97.7 F 76 16 125/78 96
08/22/24 07:05 08/22/24 08:15 08/22/24 07:05 08/22/24 08:15 08/22/24 07:05
I&O
08/21/24 08/22/24 08/23/24
06:59 06:59 06:59
Intake Total 420 / 420 3420 / 3420
Balance 420 / 420 3420 / 3420
--- NOTE | 2024-08-22 08:49 | VATNOTE ---
Called to see patient for leaking PIV site in his R wrist. Pt brought to my attention an area of redness and pain from PIV site that was discontinued from R hand/wrist on 08/19. Large area of erythema and painful. Pt states they have been applying ice
to area. Discussed with PCN, asked that she contact MD to assess for further treatment.
[2024-08-22 09:35] VITALS: BP 143/88; PULSE 83; O2SAT 97
--- NOTE | 2024-08-22 11:43 | CM ---
Addendum entered by Windy Valera 08/22/24 13:23:
patient declines Home health
discharge today to home
IMM explained & signed.
PLAN: home today, no needs
to transport
Original Note:
met with patient and .
PT recommend home health
discussed options - states they will think about it.
CM to follow-up
PLAN: Home when medically stable, CM to follow if they are agreeable to hh
[2024-08-22] MEDS: AUGMENTIN 875 MG/125 MG 1 TABLET PO (12:36)
--- NOTE | 2024-08-22 13:10 | W.DCSUMMARY ---
Discharge Summary
Discharge Data
Date of Admission: 08/16/24
Date of Discharge: 08/22/24
-
Pending Results: No
Hospital Course
Patient 79 years old male with history of Hodgkin lymphoma s/p radiation to the neck and splenectomy more than 20 years ago, history of basal cell carcinoma of the left neck status post resection, history of left carotid bifurcation pseudoaneurysm
status post left CCA and ICA stent grafts back in October 2023, hypertension, hypothyroidism, CVA, bladder cancer status post TURBT and BCG, history of left mastoid resection and tympanoplasty, history of left hearing loss, came into the with tenderness
and redness over chronic left neck induration site. He was started on IV antibiotics (IV Unasyn). Vascular surgery, ENT, and ID were consulted. CTA of the head and neck showed mildly enlarged rim-enhancing fluid collection at the previous
pseudoaneurysm repair site probable hematoma, no stent leak or stenosis. Induration area develop a small garzon and ENT lanced the site with a small amount of pus coming and cultures were taken. Cultures are negative until date. He also
underwent MRI of the affirmation area that shows collection about 5 cm x 2.6 cm x 4.2 cm likely representing abscess or phlegmon perhaps developing within a chronic hematoma per radiology report. ENT felt there might be some granulation tissue at
the incision site and would like to reevaluate as outpatient after finishing antibiotics. ID recommends to switch IV antibiotics to oral antibiotics (Augmentin) and to continue for 14 days course. He will be reevaluated by ID and ENT as outpatient
after finishing his course of antibiotics. Course complicated with mild erythema and tenderness on the right upper extremity where he had an IV site. Dopplers were taken and found acute thrombophlebitis. Discussed treatment of anticoagulation
versus local measures but given risk versus benefits patient agreed to continue local measures and follow-up as outpatient. Otherwise, he is afebrile, hemodynamically stable, normal white blood cell count and eager to go home today. PT evaluated
him and recommended home health and we had machine adjuster leader case trim to discuss upon discharge. Discussed with family upon discharge including and son who is a radiologist at [facility]. He will be discharged in relatively stable condition today.
Discharge duration: 35 minutes
Discharge Plan
-
Patient Disposition: Home with Home Care
Discharge Diagnosis/Procedures: Left leg cellulitis. Neck fluid collection. Right upper extremity thrombophlebitis. History of left carotid bifurcation pseudoaneurysm with stents graft in the past.
Diet: Low Cholesterol
Activity: As tolerated
Additional Activity: Warm compresses on right upper extremity 2-3 times a day for 1 week.
Blood Work: Please PCP to order CBC, BMP within 1 week
Others Tests: Doppler right upper extremity in about 1 to 2 months. Also consider repeat images of the neck in 2 to 4 months.
Wound Care: Keep neck area clean and dressing changes daily.
Referrals:
Leonard Reilly MD [Family Provider] - in less than 1 week
Jefferson Cobos MD [Active] - in two to four weeks
Sara Flynn MD [Active] - in two to four weeks
Prescriptions:
New
amoxicillin-pot clavulanate 875-125 mg Tablet
1 tab PO Q12 14 Days Qty: 28 0RF
Continued
levothyroxine [Synthroid] 50 mcg Tablet
50 mcg PO HS
atorvastatin [Lipitor] 80 mg Tablet
80 mg PO HS
clopidogrel 75 mg Tablet
75 mg PO DAILY Qty: 30 0RF
aspirin [Children's Aspirin] 81 mg Tablet,Chewable
81 mg PO DAILY Qty: 30 0RF
amlodipine 5 mg Tablet
5 mg PO DAILY
Discharge Orders:
Discharge Patient (As Directed); Ordered 08/22/24
Ordered By: Elliot Manriquez
Discharge Date and Time
Discharge Date/Time: 08/22/24 15:49
Print Language: SOU[place]
--- NOTE | 2024-08-22 13:13 | W.PN.ID1 ---
Date of Service
Date of Service: August 22, 2024
Today's Communication
Transition to po abx.
Assessment / Plan
# Left neck cellulitis over previous chronic walled off hematoma/pseudoaneurysm
# hx Chronic left neck induration found to have carotid bifurcation pseudoaneurysm s/p CCA and ICA stents 10/29/2023 ( induration persisted/stable since procedure).
-MRI: there is a focal mass/collection in the left neck, posteriorly adjacent to left carotid stent, and extending to the anterior skin surface. Cannot exclude abscess/phlegmon, perhaps developing within a chronic hematoma.
- Superficial pustule lanced by ENT 08/19/24 Gram stain no wbc, no organism. Aerobic culture negative to date (on unasyn), anaerobic cx pending.
- Re-swabbed site for cx.
-Cellulitis improving, less tender
- Transition Unasyn to Augmentin 875mg po bid x 14days and observe.
If no resolution of erythema and tenderness, consider aspirate 'abscess' for culture when off abx for at least 1 week, if safe to do so.
# Peripheral IV site superficial thrombophlebitis
- Peripheral Vascular US: occlusive thrombus within a superficial vein along the dorsal soft tissues of the wrist
- Continue warm compress
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
Remote Hodgkin's lymphoma status post radiation to left neck and splenectomy (25 years ago).
history of basal cell carcinoma left neck s/p resection
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
Hypertension
Hypothyroidism
CVA
Bladder cancer status post TURBT and BCG
History of left mastoid resection and tympanoplasty
left hearing loss
Chief Complaint
-: Cellulitis
Subjective / Review of Systems
c/o right wrist phlebitis
Neck is stable.
Vital Signs / Physical Exam
Vital Signs
Vital Signs
Temp Pulse Resp BP Pulse Ox
97.7 F 76 16 125/78 96
08/22/24 07:05 08/22/24 08:15 08/22/24 07:05 08/22/24 08:15 08/22/24 09:51
Physical Exam
Constitutional: No Acute Distress and Comfortable
Cardiovascular: Regular Rate and S1/S2
Pulmonary: Clear
Gastrointestinal: Soft, Non Tender and Non Distended
Extremities: Edema and Other (RUE: proximal to wrist + erythema/warmth)
Skin: Other (Left anterior lower neck soft mass stable size, less tender, erythema darker, 3 mm wound with piece of fibrinous slough otherwise wound base isclean)
Neurological: AO x 3
Objective Data
Lab Data
Lab Results
08/22/24 05:41
08/22/24 05:41
PT 13.5 Sec (11.4-14.6) 08/16/24 20:18
INR 0.98 08/16/24 20:18
APTT 27.4 Sec (23.4-35.0) 08/16/24 20:18
Estimated Creat Clear 50 ml/min 08/22/24 05:41
Lactic Acid Cancelled 08/16/24 23:45
Total Bilirubin Cancelled 08/16/24 20:18
AST Cancelled 08/16/24 20:18
ALT Cancelled 08/16/24 20:18
Alkaline Phosphatase Cancelled 08/16/24 20:18
Most recent labs reviewed.
Micro Results:
08/16/24 20:18 Blood Culture - Final
Blood/Venous No Growth - Final Report
08/19/24 15:53 Wound Culture - Preliminary
Neck No growth
Gram Stain - Preliminary
08/22/24 11:06 Wound Culture - Pending
Neck Gram Stain - Pending
08/16/24 20:18 Blood Culture - Final
Blood/Venous No Growth - Final Report
08/19/24 15:53 Anaerobic Culture - Preliminary
Neck Culture pending. Anaerobic cultures are examined after 3
days incubation. Additional information to follow.
08/20/24 MRI head/neck: As described, there is a focal mass/collection in the left neck, posteriorly adjacent to left carotid stent, and extending to the anterior skin surface. This likely represents abscess/phlegmon, perhaps developing within a
chronic hematoma.
08/16/24 CTA head/neck: Mildly enlarged rim-enhancing fluid collection at site of previous pseudoaneurysm repair with covered stent placement. Probable hematoma. Infected fluid cannot be excluded. No evidence of stent leak or stenosis.
--- NOTE | 2024-08-22 13:14 | W.PN.ENT ---
Today's Communication
-
seen at bedside
Impression / Plan
-
left lower neck swelling/tenderness
MRI hematoma with infection likely
d/c home with po antibiotics
follow up in 1 week in office
Subjective Data
-
patient with swelling and minor tenderness, ?granulation tissue at incision site, minimal discharge
Objective Data
-
Vital Signs
Temp Pulse Resp BP Pulse Ox
97.7 F 76 16 125/78 96
08/22/24 07:05 08/22/24 08:15 08/22/24 07:05 08/22/24 08:15 08/22/24 09:51
Intake & Output
08/21/24 08/22/24 08/23/24
06:59 06:59 06:59
Intake:
Oral fluids 420 / 420 2700 / 2700
IV piggybacks 720 / 720
Other:
Number of approximated MODERATE 3 3
amounts of urine
Number of approximated LARGE 4
amounts of urine
Number of unmeasured liquid
stools
Rectum 1
Lab Results
08/22/24 05:41
08/22/24 05:41
PT 13.5 Sec (11.4-14.6) 08/16/24 20:18
INR 0.98 08/16/24 20:18
APTT 27.4 Sec (23.4-35.0) 08/16/24 20:18
Calcium 8.9 mg/dl (8.4-10.2) 08/22/24 05:41
Total Bilirubin Cancelled 08/16/24 20:18
AST Cancelled 08/16/24 20:18
ALT Cancelled 08/16/24 20:18
Alkaline Phosphatase Cancelled 08/16/24 20:18
Physical Exam
-
left neck mass s/p drainage
mildly tender
Chest: Clear
Respiratory: Clear
Data Reviewed
-
Radiology Results: Report Reviewed
[2024-08-22 15:45] VITALS: BP 125/68
== END 2024-08-22 15:49 | disposition home or self-care (01) | DRG 603 ==
LOC: 2 NORTH 23:55
PROVIDERS: Physician Assistant; Student in an Organized Health Care Education/Training Program; ADMITTING PHYSICIAN Hospitalist; ATTENDING PHYSICIAN Hospitalist; EMERGENCY PHYSICIAN Emergency Medicine; FAMILY PHYSICIAN Internal Medicine; OTHER PHYSICIAN Otolaryngology Facial Plastic Surgery; OTHER PHYSICIAN Surgery Vascular Surgery
PROC: 0J950ZZ Drainage of Left Neck Subcutaneous Tissue and Fascia, Open Approach (ICD-10-PCS; 2024-08-19)
DX: L03.221 Cellulitis of neck (principal); C81.90 Hodgkin lymphoma, unspecified, unspecified site; T80.1XXA Vascular complications following infusion, transfusion and therapeutic injection, initial encounter; L02.11 Cutaneous abscess of neck; I80.8 Phlebitis and thrombophlebitis of other sites; Y84.8 Other medical procedures as the cause of abnormal reaction of the patient, or of later complication, without mention of misadventure at the time of the procedure; Y92.239 Unspecified place in hospital as the place of occurrence of the external cause; Y82.8 Other medical devices associated with adverse incidents; I10 Essential (primary) hypertension; E78.00 Pure hypercholesterolemia, unspecified; M79.81 Nontraumatic hematoma of soft tissue; E03.9 Hypothyroidism, unspecified; R22.1 Localized swelling, mass and lump, neck; H91.92 Unspecified hearing loss, left ear; Z92.3 Personal history of irradiation; Z90.81 Acquired absence of spleen; Z86.73 Personal history of transient ischemic attack (TIA), and cerebral infarction without residual deficits; Z79.82 Long term (current) use of aspirin; Z79.890 Hormone replacement therapy; Z79.02 Long term (current) use of antithrombotics/antiplatelets; Z85.51 Personal history of malignant neoplasm of bladder; Z95.820 Peripheral vascular angioplasty status with implants and grafts; Z85.828 Personal history of other malignant neoplasm of skin
CPT/HCPCS: 36415; 70496; 70498; 70543; 80048; 83605; 85025; 85027; 85610; 85730; 87040; 87070; 87075; 87205; 93005; 93971; 96365; 96366; 97116; 97162; 97530; 99285; A9575; Q9967

== ENCOUNTER → 2024-09-06 13:26 | Outpatient (REF) | payer MEDICARE, SELFPAY | LOC: DHVS 13:26 | PROVIDERS: ATTENDING PHYSICIAN Surgery Vascular Surgery; FAMILY PHYSICIAN Internal Medicine | DX: I72.0 Aneurysm of carotid artery (principal) | CPT/HCPCS: 93880 ==

== ENCOUNTER → 2025-01-02 10:28 | Outpatient (REF) | payer MEDICARE, SELFPAY ==
--- NOTE | 2024-12-27 14:08 | W.PN.UPDATE ---
Update Note
Progress Note Update
Cellulitis is unexpected but is NOT a complication of the surgery
== END ==
LOC: RAD 10:28
PROVIDERS: ATTENDING PHYSICIAN Surgery Vascular Surgery; FAMILY PHYSICIAN Internal Medicine
DX: I72.0 Aneurysm of carotid artery (principal)
CPT/HCPCS: 93880